=== PATIENT | male | born 1940 | race Caucasian/White ===

== ENCOUNTER 2020-12-20 15:51 | Inpatient (IN) ==
[2020-12-20] MEDS ORDERED: IOPAMIDOL 100 ML BOTTLE IV ONE (15:52)
--- NOTE | 2020-12-20 16:31 | Emergency Department Note ---
HPI General Chief complaint: Neuro Symptoms/Deficit Stated complaint: Expressive aphasia Time Seen by Provider: 12/20/20 16:09 Source: patient and family Mode of arrival: ambulatory Limitations: no limitations History of Present Illness HPI Narrative: Narrative: Patient is a 80-year-old male with history of aortic valve replacement, CAD who presented with chief complaint of expressive aphasia. Patient comes in with his , who relates most of the information because he has difficulty speaking. It sounds like over the course of the last several days the patient has had intermittent episodes of difficulties finding words. His states that it was not significantly noticeable to her, but the patient had reported to her. This morning the patient was scheduled for surgery to remove the testicle here at this hospital, and apparently had some feelings of tingling in his head. After the surgery, the patient was woken up and had a difficult time communicating. Initially it sounds like it was attributed to the anesthesia, and since he had no other focal neurologic deficits the patient went home with his . He has had persistent difficulties talking, unable to find words or sometimes substituting other words that are close to what he is trying to say. He appears very frustrated with this, but otherwise they deny any other significant symptoms such as fever, headache currently, neck pain, numbness or tingling, weakness on one side of the body, slurred speech, facial droop, chest pain, shortness of breath, nausea, vomiting, abdominal pain, changes in bowel movements or urinary symptoms. Patient was transitioned off of his normal Coumadin and placed on Lovenox in preparation for the surgery. He did not miss any doses that they are aware of, but the does note that just prior to them transitioning off the Coumadin his INR check was at 1.8. His last dose of anticoagulation was yesterday morning. Related Data Home Medications Medication Instructions Recorded Confirmed isosorbide mononitrate 60 mg 60 mg PO QDAY 11/21/20 12/20/20 tablet,extended release 24 hr metformin 500 mg tablet See Rx Instructions PO .COMPLEX 11/21/20 12/20/20 nitroglycerin 0.4 mg sublingual 0.4 mg SUBLINGUAL Q5-15M PRN 11/21/20 12/20/20 tablet omega-3 fatty acids-fish oil 340 1 cap PO BID 11/21/20 12/20/20 mg-1,000 mg capsule rosuvastatin 20 mg tablet 20 mg PO QPM tab 11/21/20 12/20/20 sacubitril 97 mg-valsartan 103 mg 1 tab PO BID 11/21/20 12/20/20 tablet Lactobacillus acidophilus 1,000 mmu cells PO QDAY 12/17/20 12/20/20 gabapentin 300 mg PO QHS 12/17/20 12/20/20 lysine 1,000 mg PO BID 12/17/20 12/20/20 metoprolol succinate 50 mg PO BID 12/17/20 12/20/20 multivitamin 1 tab PO QDAY 12/17/20 12/20/20 Previous Rx's Medication Instructions Recorded hydrocodone-acetaminophen 1 tab PO Q6H PRN #8 tab 12/20/20 Allergies Allergy/AdvReac Type Severity Reaction Status Date / Time [id number] Reductase Allergy Intermediate Muscle Verified 12/20/20 15:51 Inhibitor Aches/Dizziness Review of Systems ROS ROS Narrative: Narrative: All systems ED: reviewed and negative except as stated. 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) Left ventricular hypertrophy (Chronic) Pure hypercholesterolemia, unspecified (Chronic) Coronary artery disease (Chronic) Atypical atrial flutter (Chronic) Primary generalized hypertrophic osteoarthrosis (Chronic) Multiple thyroid nodules (Chronic) Lumbar radiculopathy (Chronic) 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) History of tobacco use (Chronic) Mass of left testis (Acute) Stroke-like symptoms (Acute) Medical History Anxiety 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) with other forms of angina pectoris Atypical atrial flutter Benign hypertensive heart disease without heart failure Coronary artery disease Elevated PSA History of tobacco use Inflammation of scrotum Junctional nevus Left epididymitis Left ventricular hypertrophy 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 Low back pain Lumbar radiculopathy Multiple thyroid nodules Primary generalized hypertrophic osteoarthrosis Pure hypercholesterolemia, unspecified Swollen testicle Type 2 diabetes mellitus with diabetic polyneuropathy Umbilical hernia Surgical History History of artificial heart valve (~2006) History of bilateral cataract extraction (06/2015) History of coronary artery bypass graft 2006 quintuple bypass History of heart artery stent 2016 replaced stents; stent placement 02/10/19 History of neck surgery 2009 fusion, cage History of tonsillectomy History of total bilateral knee replacement (TKR) S/P vasectomy Family History Mother Blood clot in vein Father Prostate cancer Brother Diabetes Hypertension Other Cancer Social History Smoking Status: Former smoker Alcohol Intake Frequency: does not drink Substance Use: does not use Exam Narrative Narrative: Narrative: Patient ambulated into the emergency department under his own power without any difficulties. He is sitting up in the bed now, and otherwise does not appear to be in acute discomfort or distress. He does appear to be frustrated with the fact that he is having a difficult time communicating, but appears to understand everything else that we are talking and discussing. General Limitations: no limitations Head Head: Present atraumatic and normocephalic Eye Eye: Present normal appearance, PERRL and EOMI; Absent scleral icterus and conjunctival injection ENT ENT: Present normal oropharynx and mucous membranes moist Neck Neck: Present full ROM and trachea midline; Absent tenderness and lymphadeno martha Chest Chest: Present symmetric chest wall rise Respiratory Respiratory: Present normal lung sounds bilaterally; Absent respiratory distress, rales/crackles, wheezes, stridor and accessory muscle use Cardiovascular Cardiovascular: Present regular rate and normal rhythm; Absent systolic murmur and diastolic murmur Adbominal Abdominal: Present soft; Absent tenderness, guarding, rebound, rigidity and mass Extremities Extremities: Absent pedal edema, pretibial edema and calf tenderness Back Back: Absent CVA tenderness (R), CVA tenderness (L) and spinous process tenderness Neurological Neurological: Present alert, oriented X3 and normal gait; Absent motor sensory deficit Expanded Neurological Patient oriented to: Present person, place and time Speech: Present expressive aphasia and other (NIHSS of 2. ); Absent receptive aphasia and slurred CRANIAL NERVES: EOM function (II, III, IV, ): Normal, facial sensation (V): Normal, facial palsy (VII): Normal, gag reflex (IX): Normal, spinal accessory function (XI): Normal and tongue deviation (XII): Normal CEREBELLAR FUNCTION: finger to nose: Normal and heel to paula: Normal CEREBELLAR FUNCTION: normal gait Motor strength - LUE: 5/5 Motor strength - RUE: 5/5 Motor strength - LLE: 5/5 Motor strength - RLE: 5/5 UPPER MOTOR NEURON EXAM: anaya neglect: Normal and pronator drift: Normal SENSORY EXAM UPPER EXTREMITY: Normal: light touch SENSORY EXAM LOWER EXTREMITY: Normal: light touch Psychiatric Psychiatric: Present normal affect and normal mood Skin Skin: Present warm (WNL) and dry Course Vital Signs Vital signs: Vital Signs Temperature 98.6 F 12/20/20 15:51 Pulse Rate 64 12/20/20 15:51 Respiratory Rate 16 12/20/20 15:51 Blood Pressure 150/68 12/20/20 15:51 Pulse Oximetry (%) 98 12/20/20 15:51 Temperature 98.6 F 12/20/20 19:49 Pulse Rate 62 12/20/20 19:49 Respiratory Rate 16 12/20/20 18:16 Blood Pressure 141/76 12/20/20 19:49 Pulse Oximetry (%) 99 12/20/20 19:49 [facility] MDM Narrative Medical decision making narrative: Narrative: Patient is a 80-year-old male presented with chief complaint of expressive aphasia. At this time patient is a history and physical exam consistent with likely a stroke, however his NIH SS was only a 2. His symptoms were also improving, and given the uncertain circumstances of to when his symptoms actually started and delayed presentation he is not a candidate for TPA. Work- up was performed including CT and CTA of the head and neck. No evidence of intracranial bleeding, and he had some mild diffuse stenosis noted on CTA. Rest of his blood work is overall unremarkable, and my suspicion is that this is related to the fact that he has a prosthetic valve and there anticoagulation efforts may have not been sufficient during the tapering him off of Coumadin and restarting him on Coumadin. Because of the patient's anticoagulation complexity, I did discuss case with neurology at [place], and discussed with Dr. Higuera. She stated that there was no intervention needed at this time given the timing of presentation, the anticoagulation, and no significant stenosis or embolism noted. Due to the patient's artificial valve, she recommended admission to the hospital for inpatient work-up to help facilitate an appropriate following, including MRI, echo, and blood work. I discussed this with the hospitalist, who agrees the plan admission at this time. I also discussed the findings, results, and discussions that I had multiple times with the patient and at bedside. While it was very difficult to coordinate due to the fact [place], we were able to have specialist consultation to discuss appropriate care, and that the specialist were comfortable with the patient staying here for work-up. Both the patient and agree to the plan at this time and have no further concerns or questions. Lab Data Result diagrams: 12/20/20 17:00 12/20/20 17:00 Labs: Lab Results 12/20/20 12/20/20 Range/Units 17:00 17:00 WBC 9.7 (4.5-11.0) K/mcL RBC 3.56 L (4.63-6.08) M/mcL Hgb 11.3 L (13.7-17.5) g/dL Hct 35.1 L (40.1-51.0) % MCV 98.6 (80.0-100.0) fL MCH 31.7 (26.0-34.0) pg MCHC 32.2 (31.0-36.0) g/dL RDW 13.6 (11.5-14.5) % Plt Count 121 L (140-440) K/mcL MPV 13.4 H (7.4-10.4) fL Neut % (Auto) 94.9 H (38.0-78.0) % Lymph % (Auto) 2.2 L (15.5-49.0) % Osborne % (Auto) 2.6 (1.0-12.0) % Eos % (Auto) 0.1 (0.0-7.0) % Baso % (Auto) 0.2 (0.0-2.0) % Lymph # (Auto) 0.21 L (1.50-4.80) K/mcL Osborne # (Auto) 0.25 (0.10-0.90) K/mcL Eos # (Auto) 0.01 (0.00-0.70) K/mcL Baso # (Auto) 0.02 (0.00-0.30) K/mcL Absolute Neutrophils 9.20 H (1.80-8.00) K/mcL Sodium 133 (133-145) mmol/L Potassium 4.8 (3.3-5.1) mmol/L Chloride 102 (96-108) mmol/L Carbon Dioxide 21 L (22-30) mmol/L Anion Gap 10.0 (8.0-16.0) BUN 16 (8-23) mg/dL Creatinine 1.0 (0.7-1.2) mg/dL POC Creatinine 1.0 (0.6-1.2) mg/dL GFR Calculation 71 Glucose 249 H (70-105) mg/dL Calcium 8.9 (8.6-10.4) mg/dL Total Bilirubin 0.6 (0.1-1.0) mg/dL AST 23 (<40) U/L ALT 25 (<40) U/L Alkaline Phosphatase 85 (39-117) U/L Total Protein 6.2 (5.9-8.4) gm/dL Albumin 4.2 (3.2-5.2) gm/dL Globulin 2.0 L (2.2-3.7) gm/dL Albumin/Globulin Ratio 2.1 (1.0-2.3) Procedures Other Procedure: EKG shows normal sinus rhythm with a rate of approximately 60. No ST elevation or depression concerning for ischemia. No other significant arrhythmia noted. 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 by RETAIL TRAINING MANAGER/PA only: No Clinical Impression: Stroke-like symptoms Patient Disposition: Xfer As Inpt ([facility]) Follow up with: Janes Elias DO [Primary Care Provider] - Prescriptions: No Action metformin 500 mg tablet See Rx Instructions PO .COMPLEX RF: 0 rosuvastatin 20 mg tablet 20 mg PO QPM RF: 0 isosorbide mononitrate 60 mg tablet extended release 24 hr 60 mg PO QDAY RF: 0 Entresto 97-103 mg tablet 1 tab PO BID RF: 0 Fish Oil 340-1,000 mg capsule 1 cap PO BID RF: 0 nitroglycerin 0.4 mg tablet, sublingual 0.4 mg sublingual Q5-15M PRN (Reason: Angina) RF: 0 multivitamin Tablet 1 tab PO QDAY RF: 0 Lactobacillus acidophilus Tablet 1,000 mmu cells PO QDAY RF: 0 gabapentin 300 mg Capsule 300 mg PO QHS RF: 0 metoprolol succinate 50 mg Capsule,Sprinkle,Er 24hr 50 mg PO BID RF: 0 lysine 1,000 mg Tablet 1,000 mg PO BID RF: 0 hydrocodone-acetaminophen 5-325 mg tablet 1 tab PO Q6H PRN (Reason: pain) Qty: 8 RF: 0 Stand Alone Forms: Left Against Medical Advice
--- NOTE | 2020-12-20 16:33 | Cat Scan Report ---
CLINICAL INFORMATION: Stroke COMPARISON: None. TECHNIQUE: 2.5 mm helical slices were obtained in the skull base to vertex. Following reconstruction, axial reformatted images were reviewed at bone and parenchymal windows. The exam was performed using radiation dose optimization techniques including, but not limited to, automated exposure control, adjustment of the mA and/or kV according to patient size and use of iterative reconstruction technique. FINDINGS: The ventricles, sulci, and fissures are symmetrically enlarged compatible with mild age-related atrophy. Congenital enlargement of the cisterna magna noted. Other cisterns are normal No extra-axial fluid collections are identified. Mild patchy chronic ischemic changes, in the deep cerebral white matter, are expected for age. 1 cm remote lacunar infarct noted in the deep left frontal white matter. There is no hemorrhage, mass effect, or edema. Bone windows show no osseous abnormality. IMPRESSION: Mild atrophy and chronic ischemic changes in the deep cerebral white matter-expected for age. 1 cm remote lacunar infarct in the deep left frontal white matter. No acute findings Interpreted and Authenticated by: Mauricio Pak 12/20/20
--- NOTE | 2020-12-20 17:11 | Cat Scan Report ---
CLINICAL INFORMATION: COMPARISON: None. TECHNIQUE: 80 cc of Isovue-370 were injected intravenously , and using SmartPrep to maximize cerebral arterial opacification, 0.625 mm helical slices were obtained from the skull base through the cerebral vertex. Following reconstruction , sagittal, coronal and axial reformatted images were processed and reviewed at multiple windows and levels. 3D volume rendered and MIP images were acquired at a independent workstation. The exam was performed using radiation dose optimization techniques including, but not limited to, automated exposure control, adjustment of the mA and/or kV according to patient size and use of iterative reconstruction technique. FINDINGS: The intracranial internal carotid, vertebral, basilar, anterior, middle and posterior cerebral arteries and their branches are well-opacified and normal in contour and caliber without significant stenosis, fusion. Scattered fibrofatty and calcific plaque seen throughout all the intracerebral arteries Superficial/deep cerebral veins and deep venous sinuses are widely patent IMPRESSION: No evidence of occlusion or significant stenosis. Scattered atherosclerotic plaque in all and cerebral arteries. Interpreted and Authenticated by: Mauricio Pak 12/20/20
--- NOTE | 2020-12-20 17:22 | Cat Scan Report ---
CLINICAL INFORMATION: Dysarthria question CVA COMPARISON: None. TECHNIQUE: 80 cc of Isovue-300 were injected intravenously followed by 40 cc of normal saline flush. Using SmartPrep, 0.625 helical slices were obtained from the thoracic aortic arch through the [place]. Following reconstruction, 2.5 mm sagittal, coronal and axial reformatted images were processed. MIPS , 3-D volume rendering and CPR images were also constructed. The exam was performed using radiation dose optimization techniques including, but not limited to, automated exposure control, adjustment of the mA and/or kV according to patient size and use of iterative reconstruction technique. FINDINGS: The thoracic aortic arch is normal diameter with moderate fibrofatty and calcific plaque. Conventional aortic branching noted. The brachiocephalic, both subclavian and left vertebral arteries are widely patent. There is a 50% stenosis of the right vertebral artery origin due to fibrofatty calcific plaque. Both common carotid arteries are widely patent. There two tandem stenoses in the proximal right ICA-both approximately 50%. This is due to fibrofatty calcific plaque. 50% stenosis is seen in the mid left cervical ICA due to fibrofatty calcific plaque. Both external carotid arteries contain plaque but no stenoses. The lung apices show mild centrilobular emphysema. There is a 5 cm lipoma in the posterior right cervical musculature-almost certainly clinically insignificant. Anterior C4-5 and C5-6 fusion appears solid. At C3-4, moderate broad disc spur complex left-sided asymmetry results in moderate central canal, severe left and moderate right IV foraminal narrowing. There is impingement of the exiting C4 nerve roots. The C4-5 fused level there is moderate IV foraminal and mild central canal narrowing possible impingement of the exiting right C5 nerve root. At the C5-6 fused level moderate marginal spurring results in moderate central canal and bilateral IV foraminal narrowing. There is probable impingement exiting C6 nerve roots.C6-7 moderate broad disc protrusion results in severe central canal left and mild right IV foraminal narrowing. IMPRESSION: 1. Two tandem stenoses in the proximal right internal carotid artery-both approximately 50%. 2. 50% stenoses in the mid left cervical internal carotid artery. 3. 50% stenosis of the right vertebral artery origin 4. Multilevel cervical spine degeneration resulting in central canal, lateral recess and IV foraminal narrowing. There is impingement of the exiting nerve roots. Please correlate with chronic or intermittent upper extremity radiculopathy. Anterior C4-5 and C5-6 fusion 5. Centrilobular emphysema 6. 5 cm lipoma in the posterior right cervical musculature Interpreted and Authenticated by: Mauricio Pak 12/20/20
--- NOTE | 2020-12-20 17:22 | XRay Report ---
CLINICAL INFORMATION: stroke symptoms COMPARISON: 12/17/2020 FINDINGS: Mild cardiomegaly is unchanged. Implantable cardioverter maintain stable position without complication. Sternotomy changes noted. Mediastinum and pulmonary vessels are normal. Lungs are clear. No effusions. IMPRESSION: Mild stable cardiomegaly Interpreted and Authenticated by: Mauricio Pak 12/20/20
[2020-12-20 17:47] LABS: Basophils # (Auto) 0.02 K/mcL (0.00-0.30); Basophils % (Auto) 0.2 % (0.0-2.0); Eosinophils # (Auto) 0.01 K/mcL (0.00-0.70); Eosinophils % (Auto) 0.1 % (0.0-7.0); Hematocrit 35.1 % (40.1-51.0); Hemoglobin 11.3 g/dL (13.7-17.5); Lymphocytes # (Auto) 0.21 K/mcL (1.50-4.80); Lymphocytes % (Auto) 2.2 % (15.5-49.0); Mean Cell Volume 98.6 fL (80.0-100.0); Mean Corpuscular HGB Conc 32.2 g/dL (31.0-36.0); Mean Platelet Volume 13.4 fL (7.4-10.4); Monocytes # (Auto) 0.25 K/mcL (0.10-0.90); Monocytes % (Auto) 2.6 % (1.0-12.0); Neutrophils % (Auto) 94.9 % (38.0-78.0); Platelet Count 121 K/mcL (140-440); RBC 3.56 M/mcL (4.63-6.08); Red Cell Distribution Width 13.6 % (11.5-14.5); WBC 9.7 K/mcL (4.5-11.0)
[2020-12-20 18:10] LABS: ALT/SGPT 25 U/L (<40); AST/SGOT 23 U/L (<40); Albumin 4.2 gm/dL (3.2-5.2); Albumin/Globulin Ratio 2.1 (1.0-2.3); Alkaline Phosphatase 85 U/L (39-117); Bilirubin,Total 0.6 mg/dL (0.1-1.0); Blood Urea Nitrogen 16 mg/dL (8-23); Calcium 8.9 mg/dL (8.6-10.4); Carbon Dioxide 21 mmol/L (22-30); Chloride 102 mmol/L (96-108); Glomerular Filtration Rate 71; Glucose 249 mg/dL (70-105)
[2020-12-20] MEDS ORDERED: ONDANSETRON 4 MG/2 ML VIAL IV PRN ×2 (20:05→21:12)
--- NOTE | 2020-12-20 20:30 | Internal Med History&Physical ---
HPI History of Present Illness Patient information: Note initiated : 12/20/20 at 8:20 pm Service Date, if different from initiated Date: [] Patient: Tommie Gusman a 80 y/o M admitted on for Expressive aphasia. Chief Complaint: [] History of present illness: Mr. Gusman is a 80 year old M Patient has had brief intermittent episodes of the past couple days where he had difficulty finding words.. He had a left orchiectomy today and afterwards had a difficult time expressing himself. CTA head neck was done which showed 50% stenosis mid extracranial arteries no thrombosis noted. Case was discussed with [place] neurologist who said no urgent need for any intervention but to obtain echo and MRI. Lovenox warfarin bridging. Patient on warfarin for artificial valve sounds like he may have a history of flutter and has a pacemaker and AICD. Patient symptoms slowly improving in the ED. Denies any recent illnesses. No vision changes. No extremity numbness or weakness. Review of Systems: Pertinent positives as above. Denies headache/fev er/chills/nausea/vomiting/chest or abdominal pain/cough/dyspnea/diarrhea. 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) Left ventricular hypertrophy (Chronic) Pure hypercholesterolemia, unspecified (Chronic) Coronary artery disease (Chronic) Atypical atrial flutter (Chronic) Primary generalized hypertrophic osteoarthrosis (Chronic) Multiple thyroid nodules (Chronic) Lumbar radiculopathy (Chronic) 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) History of tobacco use (Chronic) Mass of left testis (Acute) Stroke-like symptoms (Acute) Medical History Anxiety 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) with other forms of angina pectoris Atypical atrial flutter Benign hypertensive heart disease without heart failure Coronary artery disease Elevated PSA History of tobacco use Inflammation of scrotum Junctional nevus Left epididymitis Left ventricular hypertrophy 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 Low back pain Lumbar radiculopathy Multiple thyroid nodules Primary generalized hypertrophic osteoarthrosis Pure hypercholesterolemia, unspecified Swollen testicle Type 2 diabetes mellitus with diabetic polyneuropathy Umbilical hernia Surgical History History of artificial heart valve (~2006) History of bilateral cataract extraction (06/2015) History of coronary artery bypass graft 2006 quintuple bypass History of heart artery stent 2016 replaced stents; stent placement 02/10/19 History of neck surgery 2009 fusion, cage History of tonsillectomy History of total bilateral knee replacement (TKR) S/P vasectomy Family History Mother Blood clot in vein Father Prostate cancer Brother Diabetes Hypertension Other Cancer Social History marital status: occupational status: employed smoking status: Former smoker alcohol intake frequency: does not drink substance use type: does not use MEDS/ALLERGIES Home Medications and Allergies Home Medications Medication Instructions Recorded Confirmed Type isosorbide mononitrate 60 mg 60 mg PO QDAY 11/21/20 12/20/20 History tablet,extended release 24 hr metformin 500 mg tablet See Rx Instructions PO .COMPLEX 11/21/20 12/20/20 History nitroglycerin 0.4 mg sublingual 0.4 mg SUBLINGUAL Q5-15M PRN 11/21/20 12/20/20 History tablet omega-3 fatty acids-fish oil 340 1 cap PO BID 11/21/20 12/20/20 History mg-1,000 mg capsule rosuvastatin 20 mg tablet 20 mg PO QPM tab 11/21/20 12/20/20 History sacubitril 97 mg-valsartan 103 mg 1 tab PO BID 11/21/20 12/20/20 History tablet Lactobacillus acidophilus 1,000 mmu cells PO QDAY 12/17/20 12/20/20 History gabapentin 300 mg PO QHS 12/17/20 12/20/20 History lysine 1,000 mg PO BID 12/17/20 12/20/20 History metoprolol succinate 50 mg PO BID 12/17/20 12/20/20 History multivitamin 1 tab PO QDAY 12/17/20 12/20/20 History hydrocodone-acetaminophen 1 tab PO Q6H PRN #8 tab 12/20/20 12/20/20 Rx Allergies Allergy/AdvReac Type Severity Reaction Status Date / Time Lyklbpe-Kzy-Cij Reductase Allergy Intermediate Muscle Verified 12/20/20 15:51 Inhibitor Aches/Dizziness EXAM Constitutional Vitals: Temp Pulse Resp BP Pulse Ox 98.6 F 62 16 141/76 99 12/20/20 19:49 12/20/20 19:49 12/20/20 18:16 12/20/20 19:49 12/20/20 19:49 Exam: General: Alert, Awake, No acute Distress Eyes/N/T: EOMI, PERRL, dmm Head/Neck: neck supple, normocephalic atraumatic CV: RRR, 3/6 SM, normal s1/s2 Pulm: Clear b/l, no wheezing/rhonchi/rales Abd: soft, nontender, +BS x4 Ext: no clubbing/cyanosis/edema Neuro: Alert, expressive aphasia, no pronator drift and face symmetrical symmetrical strength b/l upper/lower, sensations intact b/l upper/lower Skin: warm/dry DATA Data Completed and Pending Labs: Labs from last 24 hours 12/20/20 12/20/20 17:00 17:00 WBC 9.7 RBC 3.56 L Hgb 11.3 L Hct 35.1 L MCV 98.6 MCH 31.7 MCHC 32.2 RDW 13.6 Plt Count 121 L MPV 13.4 H Neut % (Auto) 94.9 H Lymph % (Auto) 2.2 L Towner % (Auto) 2.6 Eos % (Auto) 0.1 Baso % (Auto) 0.2 Lymph # (Auto) 0.21 L Towner # (Auto) 0.25 Eos # (Auto) 0.01 Baso # (Auto) 0.02 Absolute Neutrophils 9.20 H Sodium 133 Potassium 4.8 Chloride 102 Carbon Dioxide 21 L Anion Gap 10.0 BUN 16 Creatinine 1.0 POC Creatinine 1.0 GFR Calculation 71 Glucose 249 H Calcium 8.9 Total Bilirubin 0.6 AST 23 ALT 25 Alkaline Phosphatase 85 Total Protein 6.2 Albumin 4.2 Globulin 2.0 L Albumin/Globulin Ratio 2.1 A/P Narrative A/P Narrative: A: *Strokelike symptoms (expressive aphasia): -Case discussed with stroke neurologist, no immediate need for intervention of extracranial stenosis *CAD w/cabg and stent: *h/o CHF w/AICD: *Aortic Valve Replacement 2006: on warfarin -INR subtherapeutic *h/o Aflutter w/PPM: *HTN: *DM w/ neuropathy: a1c *Anemia, chronic: *Atelectasis: P: -Permissive hypertension first 24-48 hr -Lovenox-warfarin bridge -neurochecks -echo and MRI pending -cont statin -restart BP meds gradually -SSI -IS -f/u with Dr. Cain regarding extracranial stenosis -PT/OT/ST -ppx: Warfarin per pharmacy Full code Time Spent With Patient Time: Total time spent is greater than 50% in coordination of care (as documented) at patient's floor/unit and/or counseling patient:
[2020-12-20] MEDS ORDERED: LABETALOL 5 MG/ML ML IV PRN (21:12)
[2020-12-20] MEDS ORDERED: MAGNESIUM SULFATE 2 GM/50 ML BAG IV PRN (21:12)
[2020-12-20] MEDS ORDERED: POLYETHYLENE GLYCOL 3350 17 GM PACKET PO PRN (21:12)
[2020-12-20] MEDS ORDERED: 0.9 % SODIUM CHLORIDE 1,000 ML IV SCH (21:12)
[2020-12-20] MEDS ORDERED: METOCLOPRAMIDE 10 MG/2 ML VIAL IV PRN (21:12)
[2020-12-20] MEDS ORDERED: DEXTROSE 50% 50 ML VIAL IV PRN (21:12)
[2020-12-20] MEDS ORDERED: POTASSIUM CHLORIDE 40 MEQ in DEXTROSE 5% IN WATER 500 ML IV PRN (21:12)
[2020-12-20] MEDS ORDERED: METOPROLOL TARTRATE 5 MG/5 ML VIAL IV PRN (21:12)
[2020-12-20] MEDS ORDERED: IPRATROPIUM/ALBUTEROL 3 ML AMPUL.NEB NEB PRN (21:12)
[2020-12-20] MEDS ORDERED: SENNOSIDES 1 TABLET PO PRN (21:12)
[2020-12-20] MEDS ORDERED: ACETAMINOPHEN 325 MG TABLET PO PRN (21:12)
[2020-12-20] MEDS ORDERED: DEXTROSE 31 GM ORAL.SUSP PO PRN (21:12)
[2020-12-20] MEDS ORDERED: POTASSIUM CHLORIDE 20 MEQ TABLET PO PRN ×2 (21:12)
[2020-12-20] MEDS ORDERED: 0.9 % SODIUM CHLORIDE 10 ML SYRINGE IV SCH (22:00)
[2020-12-20] MEDS ORDERED: HYDROcodone/APAP 5/325MG TABLET PO PRN (22:14)
[2020-12-20] MEDS ORDERED: NITROGLYCERIN 0.4 MG TAB.SUBL SL PRN (22:15)
[2020-12-20] MEDS: INSULIN LISPRO 1 UNIT/0.01 ML UNIT SQ SCH (22:56)
[2020-12-20] MEDS: ENOXAPARIN 80 MG/0.8 ML SYRINGE SQ SCH (22:56)
[2020-12-20] MEDS: GABAPENTIN 300 MG CAPSULE PO SCH (22:57)
[2020-12-20] MEDS: DOCUSATE SODIUM 100 MG CAPSULE PO SCH (22:57)
[2020-12-20] MEDS: METOPROLOL SUCCINATE 50 MG TAB.XL.24H PO SCH (22:57)
[2020-12-20] MEDS: 0.9 % SODIUM CHLORIDE 10 ML SYRINGE IV SCH (23:01)
[2020-12-20 23:15] LABS: INR 1.1 (0.9-1.1); Prothrombin Time 14.8 sec (11.9-14.5)
[2020-12-20 23:30] LABS: Hemoglobin A1C 6.1 % Hgb (4.0-6.0)
[2020-12-21] MEDS: 0.9 % SODIUM CHLORIDE 10 ML SYRINGE IV SCH ×3 (04:52→21:27)
--- NOTE | 2020-12-21 07:26 | Internal Med Progress Note ---
SUBJECTIVE Subjective Patient information: Note initiated : 12/21/20 at 7:24 am Service Date, if different from initiated Date: [] Patient: Tommie Gusman a 80 y/o M admitted on 12/20/20 for Expressive aphasia. Chief Complaint: [] Interval history: History of present illness: Mr. Gusman is a 80 year old M Patient has had brief intermittent episodes of the past couple days where he had difficulty finding words.. He had a left orchiectomy today and afterwards had a difficult time expressing himself. CTA head neck was done which showed 50% stenosis mid extracranial arteries no thrombosis noted. Case was discussed with [place] neurologist who said no urgent need for any intervention but to obtain echo and MRI. Lovenox warfarin bridging. Patient on warfarin for artificial valve sounds like he may have a history of flutter and has a pacemaker and AICD. Patient symptoms slowly improving in the ED. Denies any recent illnesses. No vision changes. No extremity numbness or weakness. 12/21 Expressive aphasia present but mildly improved. No overnight event or new complaints. Unable obtain MRI given pacer. Will obtain CT brain tomorrow morning. Awaiting echo results as well. Also on Lovenox warfarin bridge awaiting INR to start elevating. Review of Systems: denies headache/fever/chills/nausea/vomiting/chest or abdominal pain/ cough/dyspnea/diarrhea. Otherwise see above. Constitutional Vitals: Vital Signs Temp Pulse Resp BP Pulse Ox 98 F 61 16 114/58 98 12/21/20 04:00 12/21/20 06:01 12/21/20 06:01 12/21/20 06:01 12/21/20 06:01 Period Temp Pulse Resp BP Sys/Herrera Pulse Ox Last 24 Hr 98 F-98.6 F 56-67 9-27 114-152/48-99 89-100 Intake and Output 12/20/20 12/21/20 12/21/20 21:59 05:59 13:59 Intake Total 400 Balance 400 Weight 78.471 kg Intake & Output: Intake & Output 12/20/20 12/21/20 12/21/20 21:59 05:59 13:59 Intake Total 400 Balance 400 Weight 78.471 kg Intake: Oral 400 Other: # Voids 1 Exam: Alert, Awake, No acute Distress Eyes/N/T: EOMI, Head/Neck: neck supple, CV: RRR, 3/6 SM, Pulm: Clear b/l, no wheezing/rhonchi/rales Abd: soft, nontender, +BS x4 Ext: no clubbing/cyanosis, 1+ b/l LE edema Neuro: Alert, expressive aphasia, symmetrical strength b/l upper/lower, Skin: warm/dry OBJ DATA Labs CBC & Chem 7: 12/20/20 17:00 12/20/20 17:00 Labs: Abnormal Lab Results 12/20/20 12/20/20 12/20/20 22:03 17:00 17:00 RBC Hgb Hct Plt Count MPV Neut % (Auto) Lymph % (Auto) Lymph # (Auto) Absolute Neutrophils PT 14.8 H Carbon Dioxide 21 L Glucose 249 H Hemoglobin A1c 6.1 H Globulin 2.0 L 12/20/20 17:00 RBC 3.56 L Hgb 11.3 L Hct 35.1 L Plt Count 121 L MPV 13.4 H Neut % (Auto) 94.9 H Lymph % (Auto) 2.2 L Lymph # (Auto) 0.21 L Absolute Neutrophils 9.20 H PT Carbon Dioxide Glucose Hemoglobin A1c Globulin Meds: Medications Acetaminophen (Acetaminophen 325 Mg Tablet) 650 mg PO Q6HP PRN PRN Reason: PAIN/FEVER > 101 Hydrocodone Bitart/Acetaminophen (Hydrocodone/Apap 5/325mg Tablet) 1 tab PO Q6HP PRN PRN Reason: Pain Albuterol/Ipratropium (Ipratropium/Albuterol 3 Ml Ampul.Neb) 3 ml NEB Q4HP PRN PRN Reason: Shortness Of Breath Dextrose (Dextrose 50% 50 Ml Vial) 0 ml IV UD PRN PRN Reason: Hypoglycemia Diagnostic Test (Pha) (Accu-Chek 1 Each Strip) 1 each FS ACHS [facility] Last Admin: 12/20/20 22:26 Dose: 1 each Documented by: Docusate Sodium (Docusate Sodium 100 Mg Capsule) 100 mg PO BID [facility] Last Admin: 12/20/20 22:57 Dose: 100 mg Documented by: Enoxaparin Sodium (Enoxaparin 80 Mg/0.8 Ml Syringe) 80 mg SQ BID [facility] Last Admin: 12/20/20 22:56 Dose: 80 mg Documented by: Gabapentin (Gabapentin 300 Mg Capsule) 300 mg PO QHS [facility] Last Admin: 12/20/20 22:57 Dose: 300 mg Documented by: Glucose (Dextrose 31 Gm Oral.Susp) 15 gm PO PRN PRN PRN Reason: Hypoglycemia Potassium Chloride 40 meq/ (Dextrose) 520 mls @ 130 mls/hr IV UD PRN PRN Reason: Potassium < 3 Magnesium Sulfate (Magnesium Sulfate) 2 gm in 50 mls @ 50 mls/hr IV UD PRN PRN Reason: Magnesium </= 1.6 Insulin Human Lispro (Insulin Lispro 1 Unit/0.01 Ml Unit) 0 unit SQ ACHS [facility]; Protocol Last Admin: 12/20/20 22:56 Dose: 2 units Documented by: Isosorbide Mononitrate (Isosorbide Mononitrate 60 Mg Tab.Xl.24h) 60 mg PO QDAY [facility] Labetalol HCl (Labetalol 5 Mg/Ml Ml) 0 mg IV Q2HP PRN PRN Reason: Hypertension Lactobacillus Rhamnosus (Lactobacillus 1 Capsule) 1 cap PO DAILY [facility] Metoclopramide HCl (Metoclopramide 10 Mg/2 Ml Vial) 10 mg IV Q6HP PRN PRN Reason: Nausea And Vomiting Metoprolol Succinate (Metoprolol Succinate 50 Mg Tab.Xl.24h) 50 mg PO BID [facility] Last Admin: 12/20/20 22:57 Dose: 50 mg Documented by: Metoprolol Tartrate (Metoprolol Tartrate 5 Mg/5 Ml Vial) 5 mg IV Q2HP PRN PRN Reason: Tachyarrhythmias HR>110 Nitroglycerin (Nitroglycerin 0.4 Mg Tab.Subl) 0.4 mg SL Q5M PRN PRN Reason: Chest Pain Ondansetron HCl (Ondansetron 4 Mg/2 Ml Vial) 4 mg IV Q4HP PRN PRN Reason: Nausea And Vomiting Pantoprazole Sodium (Pantoprazole 40 Mg Vial) 40 mg IV QAMAC [facility] Rosuvastatin 20 Mg (Tablet) 1 dose PO QPM [facility] Sacubitril-Valsartan [Entresto] 97-103 Mg Tablet 1 dose PO BID [facility] Polyethylene Glycol (Polyethylene Glycol 3350 17 Gm Packet) 17 gm PO DAILYP PRN PRN Reason: Constipation Potassium Chloride (Potassium Chloride 20 Meq Tablet) 40 meq PO UD PRN PRN Reason: Potssium is 3-3.5 Potassium Chloride (Potassium Chloride 20 Meq Tablet) 40 meq PO UD PRN PRN Reason: Potassium < 3 Senna (Sennosides 1 Tablet) 2 tab PO DAILYP PRN PRN Reason: Constipation Sodium Chloride (0.9 % Sodium Chloride 10 Ml Syringe) 10 ml IV Q8 [facility] Last Admin: 12/21/20 04:52 Dose: Not Given Documented by: Warfarin Sodium (Warfarin Per Pharmacy) 1 order PO UD DAVID A/P Narrative A/P Narrative: A: *Strokelike symptoms (expressive aphasia): -Case discussed with stroke neurologist, no immediate need for intervention of extracranial stenosis *CAD w/cabg & stent: *h/o CHF w/AICD: *Aortic Valve Replacement 2006: on warfarin -INR subtherapeutic on admit *h/o Aflutter w/PPM: *HTN: *DM w/ neuropathy: a1c 6.1 *Anemia, chronic: *Atelectasis: P: -Permissive hypertension first 24-48 hr -Lovenox-warfarin bridge goal inr 2.5-3.5 -neurochecks -echo pending -unable to get MRI d/t PPM, will obtain CT brain in morning -cont statin -restart BP meds gradually -SSI -IS -f/u with Dr. Cani regarding extracranial stenosis -PT/OT/ST -ppx: Warfarin per pharmacy Full code Time Spent With Patient Time: Total time spent is greater than 50% in coordination of care (as documented) at patient's floor/unit and/or counseling patient: QUALITY VTE Deep Vein Thrombosis/Pulmonary Embolism Present on Admission: No
[2020-12-21 07:52] LABS: INR 1.2 (0.9-1.1); Prothrombin Time 16.2 sec (11.9-14.5)
[2020-12-21] MEDS ORDERED: LABETALOL 5 MG/ML ML IV PRN (08:20)
[2020-12-21 08:29] LABS: ALT/SGPT 23 U/L (<40); AST/SGOT 26 U/L (<40); Albumin 3.8 gm/dL (3.2-5.2); Albumin/Globulin Ratio 2.5 (1.0-2.3); Alkaline Phosphatase 74 U/L (39-117); Bilirubin,Direct < 0.2 mg/dL (0-0.3); Bilirubin,Total 0.4 mg/dL (0.1-1.0); Blood Urea Nitrogen 17 mg/dL (8-23); Calcium 8.5 mg/dL (8.6-10.4); Carbon Dioxide 22 mmol/L (22-30); Chloride 107 mmol/L (96-108); Globulin 1.5 gm/dL (2.2-3.7); Glomerular Filtration Rate 71; Glucose 171 mg/dL (70-105); Lactate Dehydrogenase 310 U/L (135-225); Phosphorous 2.9 mg/dL (2.5-4.5); Triglycerides 52 mg/dL (<150); Uric Acid 4.7 mg/dL (2.5-8.0)
[2020-12-21] MEDS ORDERED: Sacubitril-Valsartan [Entresto] 97-103 mg tablet PO SCH (09:00)
[2020-12-21] MEDS: INSULIN LISPRO 1 UNIT/0.01 ML UNIT SQ SCH ×4 (09:02→21:22)
[2020-12-21] MEDS: METOPROLOL SUCCINATE 50 MG TAB.XL.24H PO SCH ×2 (09:03→21:26)
[2020-12-21] MEDS: PANTOPRAZOLE 40 MG VIAL IV SCH (09:03)
[2020-12-21] MEDS: DOCUSATE SODIUM 100 MG CAPSULE PO SCH ×2 (09:03→21:26)
[2020-12-21] MEDS: ENOXAPARIN 80 MG/0.8 ML SYRINGE SQ SCH (09:03)
[2020-12-21] MEDS: LACTOBACILLUS 1 CAPSULE PO SCH (09:03)
--- NOTE | 2020-12-21 09:26 | EKG ---
[facility] Test Date: 2020-12-20 Pat Name: Tommie Gusman Department: ED Room: Gender: Male [employer] Manager: kw : 1940 Requested By: Jerry Oneill Order Number: [id number] Reading MD: Zafar Houston Measurements Intervals [place] Rate: 60 P: OR: 183 QRS: 9 QRSD: 122 T: 100 QT: 423 QTc: 423 Interpretive Statements Atrial-paced complexes Left bundle branch block Electronically Signed On 12-21-2020 9:25:54 PDT by Zafar Houston /[id number]
--- NOTE | 2020-12-21 13:11 | Urology Consult Note ---
HPI Data of Consult Patient: known to practice within the last 3 years Consult date: 12/21/20 Requesting physician: Kartik Todd Primary Care Provider: Janes Elias DO Consult Narrative Patient Information: Note initiated : 12/21/20 at 1:03 pm Service Date, if different from initiated Date: [] Patient: Tommie Gusman a 80 y/o M admitted on 12/20/20 for Expressive aphasia. 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 There were no intraoperative complications. The patient was discharged home where his noticed an increase in his slurred speech. In speaking with her today she reports that he began to have signs of slurred speech this past Thursday. After surgery the symptoms became worse. She reports that currently they are improving somewhat. That is the only change she reports she notices. The patient reports that he does notice that he is having increased difficulty expressing himself and finding the right words. He is not having any significant pain. He is alert in bed and eating lunch Chief complaint: Expressive aphasia and ecchymosis of the surgical wound. Reason for consult: Ecchymosis at the surgical wound. 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) Left ventricular hypertrophy (Chronic) Pure hypercholesterolemia, unspecified (Chronic) Coronary artery disease (Chronic) Atypical atrial flutter (Chronic) Primary generalized hypertrophic osteoarthrosis (Chronic) Multiple thyroid nodules (Chronic) Lumbar radiculopathy (Chronic) alf current use of anticoagulant (Chronic) History of tobacco use (Chronic) Medical History Anxiety 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) with other forms of angina pectoris Atypical atrial flutter Benign hypertensive heart disease without heart failure Coronary artery disease Elevated PSA History of tobacco use Inflammation of scrotum Junctional nevus Left epididymitis 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 Low back pain Lumbar radiculopathy Multiple thyroid nodules Primary generalized hypertrophic osteoarthrosis Pure hypercholesterolemia, unspecified Swollen testicle Type 2 diabetes mellitus with diabetic polyneuropathy Umbilical hernia Surgical History History of artificial heart valve (~2006) History of bilateral cataract extraction (06/2015) History of coronary artery bypass graft 2006 quintuple bypass History of heart artery stent 2015 replaced stents; stent placement 02/10/19 History of neck surgery 2009 fusion, cage History of tonsillectomy History of total bilateral knee replacement (TKR) S/P vasectomy Family History Mother Blood clot in vein Father Prostate cancer Brother Diabetes Hypertension Other Cancer Social History marital status: occupational status: employed smoking status: Former smoker alcohol intake frequency: does not drink substance use type: does not use MEDS/ALLERGIES Home Medications and Allergies Home Medications Medication Instructions Recorded Confirmed Type isosorbide mononitrate 60 mg 60 mg PO QDAY 11/21/20 12/20/20 History tablet,extended release 24 hr metformin 500 mg tablet See Rx Instructions PO .COMPLEX 11/21/20 12/20/20 History nitroglycerin 0.4 mg sublingual 0.4 mg SUBLINGUAL Q5-15M PRN 11/21/20 12/20/20 History tablet omega-3 fatty acids-fish oil 340 1 cap PO BID 11/21/20 12/20/20 History mg-1,000 mg capsule rosuvastatin 20 mg tablet 20 mg PO QPM tab 11/21/20 12/20/20 History sacubitril 97 mg-valsartan 103 mg 1 tab PO BID 11/21/20 12/20/20 History tablet Lactobacillus acidophilus 1,000 mmu cells PO QDAY 12/17/20 12/20/20 History gabapentin 300 mg PO QHS 12/17/20 12/20/20 History lysine 1,000 mg PO BID 12/17/20 12/20/20 History metoprolol succinate 50 mg PO BID 12/17/20 12/20/20 History multivitamin 1 tab PO QDAY 12/17/20 12/20/20 History hydrocodone-acetaminophen 1 tab PO Q6H PRN #8 tab 12/20/20 12/20/20 Rx Allergies Allergy/AdvReac Type Severity Reaction Status Date / Time [id number] Reductase AdvReac Intermediate Muscle Verified 12/20/20 22:17 Inhibitor Aches/Dizziness Physical Examination Vital Signs Vital signs: Temp Pulse Resp BP Pulse Ox 98 F 62 19 142/62 100 12/21/20 12:03 12/21/20 12:03 12/21/20 12:03 12/21/20 12:03 12/21/20 12:03 General physical appearance General physical exam: well developed, well nourished and no distress ENT ENT exam: normal mucosa and no hearing loss Head Head exam IM: Present atraumatic, normal inspection and normocephalic Neck Neck exam: trachea midline Abdomen Abdomen: Present soft and non tender Genitourinary Genitourinary (Male): Present normal penis with no external lesions and other (Ecchymosis of the suprapubic, peripenile area and scrotum as well as the left inguinal region); Absent testicles present (Left testicle absent) Genitourinary: testicle absent: left Neurologic Neurologic: Present other (Expressive aphasia) Musculoskeletal Musculoskeletal: Present other (Resting comfortably in bed) Psychiatric Psychiatric: Absent speech is normal Results Labs Result diagrams: 12/20/20 17:00 12/21/20 06:12 Labs: Abnormal lab results 12/20/20 12/20/20 12/20/20 Range/Units 17:00 17:00 17:00 RBC 3.56 L (4.63-6.08) M/mcL Hgb 11.3 L (13.7-17.5) g/dL Hct 35.1 L (40.1-51.0) % Plt Count 121 L (140-440) K/mcL MPV 13.4 H (7.4-10.4) fL Neut % (Auto) 94.9 H (38.0-78.0) % Lymph % (Auto) 2.2 L (15.5-49.0) % Lymph # (Auto) 0.21 L (1.50-4.80) K/mcL Absolute Neutrophils 9.20 H (1.80-8.00) K/mcL PT (11.9-14.5) sec INR (0.9-1.1) Carbon Dioxide 21 L (22-30) mmol/L Glucose 249 H (70-105) mg/dL Hemoglobin A1c 6.1 H (4.0-6.0) % Hgb Calcium (8.6-10.4) mg/dL Lactate Dehydrogenase (135-225) U/L Total Protein (5.9-8.4) gm/dL Globulin 2.0 L (2.2-3.7) gm/dL Albumin/Globulin Ratio (1.0-2.3) 12/20/20 12/21/20 12/21/20 Range/Units 22:03 06:12 06:12 RBC (4.63-6.08) M/mcL Hgb (13.7-17.5) g/dL Hct (40.1-51.0) % Plt Count (140-440) K/mcL MPV (7.4-10.4) fL Neut % (Auto) (38.0-78.0) % Lymph % (Auto) (15.5-49.0) % Lymph # (Auto) (1.50-4.80) K/mcL Absolute Neutrophils (1.80-8.00) K/mcL PT 14.8 H 16.2 H (11.9-14.5) sec INR 1.2 H (0.9-1.1) Carbon Dioxide (22-30) mmol/L Glucose 171 H (70-105) mg/dL Hemoglobin A1c (4.0-6.0) % Hgb Calcium 8.5 L (8.6-10.4) mg/dL Lactate Dehydrogenase 310 H (135-225) U/L Total Protein 5.3 L (5.9-8.4) gm/dL Globulin 1.5 L (2.2-3.7) gm/dL Albumin/Globulin Ratio 2.5 H (1.0-2.3) Diabetes panel 12/20/20 12/20/20 12/21/20 Range/Units 17:00 17:00 06:12 Sodium 133 139 (133-145) mmol/L Potassium 4.8 4.6 (3.3-5.1) mmol/L Chloride 102 107 (96-108) mmol/L Carbon Dioxide 21 L 22 (22-30) mmol/L BUN 16 17 (8-23) mg/dL Creatinine 1.0 1.0 (0.7-1.2) mg/dL Glucose 249 H 171 H (70-105) mg/dL Hemoglobin A1c 6.1 H (4.0-6.0) % Hgb Calcium 8.9 8.5 L (8.6-10.4) mg/dL AST 23 26 (<40) U/L ALT 25 23 (<40) U/L Alkaline Phosphatase 85 74 (39-117) U/L Total Protein 6.2 5.3 L (5.9-8.4) gm/dL Albumin 4.2 3.8 (3.2-5.2) gm/dL Triglycerides 47 52 (<150) mg/dL HDL Cholesterol 47 (>40) mg/dL Calcium panel 12/20/20 12/21/20 Range/Units 17:00 06:12 Calcium 8.9 8.5 L (8.6-10.4) mg/dL Phosphorus 2.9 (2.5-4.5) mg/dL Albumin 4.2 3.8 (3.2-5.2) gm/dL Pituitary panel 12/20/20 12/21/20 Range/Units 17:00 06:12 Sodium 133 139 (133-145) mmol/L Potassium 4.8 4.6 (3.3-5.1) mmol/L Chloride 102 107 (96-108) mmol/L Carbon Dioxide 21 L 22 (22-30) mmol/L BUN 16 17 (8-23) mg/dL Creatinine 1.0 1.0 (0.7-1.2) mg/dL Glucose 249 H 171 H (70-105) mg/dL Calcium 8.9 8.5 L (8.6-10.4) mg/dL Adrenal panel 12/20/20 12/21/20 Range/Units 17:00 06:12 Sodium 133 139 (133-145) mmol/L Potassium 4.8 4.6 (3.3-5.1) mmol/L Chloride 102 107 (96-108) mmol/L Carbon Dioxide 21 L 22 (22-30) mmol/L BUN 16 17 (8-23) mg/dL Creatinine 1.0 1.0 (0.7-1.2) mg/dL Glucose 249 H 171 H (70-105) mg/dL Calcium 8.9 8.5 L (8.6-10.4) mg/dL Total Bilirubin 0.6 0.4 (0.1-1.0) mg/dL AST 23 26 (<40) U/L ALT 25 23 (<40) U/L Alkaline Phosphatase 85 74 (39-117) U/L Total Protein 6.2 5.3 L (5.9-8.4) gm/dL Albumin 4.2 3.8 (3.2-5.2) gm/dL All other labs normal. 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 Preoperatively there was a question as to whether he had some slurred speech. It was determined that this was not a new finding. Postoperatively he was discharged to home where his noticed a worsening of his slurred speech and expressive aphasia which she reports had been present to some extent since the prior Thursday he was brought to the hospital where he was admitted for PCU care for possible stroke. Additionally urology consultation was obtained since this patient went to the operating room yesterday and was having some ecchymosis and bleeding from the surgical site. The patient has a history of an artificial h eart valve and for this reason is generally on anticoagulation with Coumadin and he was on bridging with Lovenox. No anticoagulation had been held at this time. On examination the wound appeared to have ecchymosis but no significant bleeding or hematoma. We discussed that we have to evaluate the risks of various things. As there did not appear to be any significant or active I felt that a pressure dressing or a IV bag placed on the wound would be adequate and that we should continue his anticoagulation as the risk of problems with his heart valve at this point outweighs the risk of the minimal ecchymosis seen at the surgical site With regard to his expressive aphasia and possible stroke this will be further evaluated by our hospitalist service. I would like to be involved with any pr oblems or changes that occur. I will check on the patient tomorrow to ensure that he is doing well. Nursing has my number to call should there be any issues overnight. Time Spent With Patient Time: Total time spent is greater than 50% in coordination of care (as documented) at patient's floor/unit and/or counseling patient: Total time spent with greater than 50% in coordination of care (as documented) at patient's floor/unit and/or counseling patient:: 25 - 35 minutes
[2020-12-21] MEDS ORDERED: WARFARIN 5 MG TABLET PO ONE (14:00)
[2020-12-21] MEDS: GABAPENTIN 300 MG CAPSULE PO SCH (21:26)
[2020-12-22] MEDS: 0.9 % SODIUM CHLORIDE 10 ML SYRINGE IV SCH ×3 (06:05→20:15)
[2020-12-22 09:15] LABS: INR 1.1 (0.9-1.1); Prothrombin Time 15.1 sec (11.9-14.5)
[2020-12-22 09:24] LABS: Basophils # (Auto) 0.04 K/mcL (0.00-0.30); Basophils % (Auto) 0.6 % (0.0-2.0); Eosinophils # (Auto) 0.09 K/mcL (0.00-0.70); Eosinophils % (Auto) 1.3 % (0.0-7.0); Hematocrit 30.5 % (40.1-51.0); Lymphocytes % (Auto) 7.4 % (15.5-49.0); Mean Cell Volume 96.8 fL (80.0-100.0); Mean Corpuscular HGB Conc 32.8 g/dL (31.0-36.0); Mean Platelet Volume 13.6 fL (7.4-10.4); Monocytes # (Auto) 0.73 K/mcL (0.10-0.90); Monocytes % (Auto) 10.8 % (1.0-12.0); Neutrophils % (Auto) 79.9 % (38.0-78.0); Platelet Count 107 K/mcL (140-440); RBC 3.15 M/mcL (4.63-6.08); Red Cell Distribution Width 13.7 % (11.5-14.5); WBC 6.7 K/mcL (4.5-11.0)
[2020-12-22] MEDS: INSULIN LISPRO 1 UNIT/0.01 ML UNIT SQ SCH ×4 (09:51→20:14)
[2020-12-22] MEDS: LACTOBACILLUS 1 CAPSULE PO SCH (09:51)
[2020-12-22] MEDS: ISOSORBIDE MONONITRATE 60 MG TAB.XL.24H PO SCH (09:51)
[2020-12-22] MEDS: METOPROLOL SUCCINATE 50 MG TAB.XL.24H PO SCH ×2 (09:51→20:13)
[2020-12-22] MEDS: PANTOPRAZOLE 40 MG VIAL IV SCH (09:51)
[2020-12-22] MEDS: DOCUSATE SODIUM 100 MG CAPSULE PO SCH ×2 (09:51→20:13)
--- NOTE | 2020-12-22 09:51 | Internal Med Progress Note ---
SUBJECTIVE Subjective Patient information: Note initiated : 12/22/20 at 9:46 am Service Date, if different from initiated Date: [] Patient: Tommie Gusman a 80 y/o M admitted on 12/20/20 for Expressive aphasia. Chief Complaint: [Expressive aphasia] Interval history: Interval history: History of present illness: Mr. Gusman is a 80 year old M Patient has had brief intermittent episodes of the past couple days where he had difficulty finding words.. He had a left orchiectomy today and afterwards had a difficult time expressing himself. CTA head neck was done which showed 50% stenosis mid extracranial arteries no thrombosis noted. Case was discussed with [place] neurologist who said no urgent need for any intervention but to obtain echo and MRI. Lovenox warfarin bridging. Patient on warfarin for artificial valve sounds like he may have a history of flutter and has a pacemaker and AICD. Patient symptoms slowly improving in the ED. Denies any recent illnesses. No vision changes. No extremity numbness or weakness. 12/21 Expressive aphasia present but mildly improved. No overnight event or new complaints. Unable obtain MRI given pacer. Will obtain CT brain tomorrow morning. Awaiting echo results as well. Also on Lovenox warfarin bridge awaiting INR to start elevating. 12/22: Expressive aphasia present but continue to improved. No overnight event or new complaints. No headache. INR 1.1. Constitutional Vitals: Vital Signs Temp Pulse Resp BP Pulse Ox 36.8 C 56 L 17 144/62 91 12/22/20 08:01 12/22/20 08:01 12/22/20 08:01 12/22/20 08:01 12/22/20 08:01 Period Temp Pulse Resp BP Sys/Herrera Pulse Ox Last 24 Hr 36.5 C-37.3 C 56-65 16-31 108-155/50-89 91-100 Intake and Output 12/21/20 12/22/20 12/22/20 21:59 05:59 13:59 Intake Total 200 0 0 Output Total 175 350 275 Balance 25 -350 -275 Weight 79.152 kg Intake & Output: Intake & Output 12/21/20 12/22/20 12/22/20 21:59 05:59 13:59 Intake Total 200 0 0 Output Total 175 350 275 Balance 25 -350 -275 Weight 79.152 kg Intake: Oral 200 0 0 Output: Void Amount 175 350 275 # of times incontinent of urine 0 Other: Urine Appearance Clear Clear Urine Color Bright Yellow Bright Yellow Urine Odor Normal Normal Stool Size Moderate Stool Color Brown Stool Consistency Soft # Voids 1 # Bowel Movements 1 General appearance: cooperative and no acute distress Head Head exam: Present atraumatic and normocephalic Eye Eye exam: Present EOMI and PERRL ENT ENT exam: Present mucous membranes moist, normal exam and normal external ear exam Neck Neck exam: Present normal inspection; Absent lymphadenopathy, tenderness and thyromegaly Respiratory Respiratory exam: Absent accessory muscle use, respiratory distress and wheezes Cardiovascular Cardiovascular exam: Present normal rate and rhythm; Absent JVD Additional comments: Mechanical heart valve clicking sound Pacemaker in place Well-healed CABG surgical wound GI/Abdominal GI/Abdominal exam: Present normal bowel sounds and soft; Absent organomegaly and tenderness Rectal Rectal exam: Present deferred Additional comments: Ecchymosis of the scrotum and penis Pressure dressings of the left groin Extremities Exam Extremities exam: Present full ROM, normal capillary refill and normal insp ection; Absent tenderness Neurological Exam Neurological exam: Present alert, CN II-XII intact and oriented X3; Absent motor sensory deficit Additional comments: Some stuttering and word finding difficulties Psychiatric Psychiatric exam: Present normal affect and normal mood; Absent anxious and depressed Skin Skin exam: Present dry and intact OBJ DATA Labs CBC & Chem 7: 12/22/20 05:24 12/21/20 06:12 Labs: Abnormal Lab Results 12/22/20 12/22/20 12/21/20 05:25 05:24 06:12 RBC 3.15 L Hgb 10.0 L Hct 30.5 L Plt Count 107 L MPV 13.6 H Neut % (Auto) 79.9 H Lymph % (Auto) 7.4 L Lymph # (Auto) 0.50 L Absolute Neutrophils PT 15.1 H INR Carbon Dioxide Glucose 171 H Hemoglobin A1c Calcium 8.5 L Lactate Dehydrogenase 310 H Total Protein 5.3 L Globulin 1.5 L Albumin/Globulin Ratio 2.5 H 12/21/20 12/20/20 12/20/20 06:12 22:03 17:00 RBC Hgb Hct Plt Count MPV Neut % (Auto) Lymph % (Auto) Lymph # (Auto) Absolute Neutrophils PT 16.2 H 14.8 H INR 1.2 H Carbon Dioxide Glucose Hemoglobin A1c 6.1 H Calcium Lactate Dehydrogenase Total Protein Globulin Albumin/Globulin Ratio 12/20/20 12/20/20 17:00 17:00 RBC 3.56 L Hgb 11.3 L Hct 35.1 L Plt Count 121 L MPV 13.4 H Neut % (Auto) 94.9 H Lymph % (Auto) 2.2 L Lymph # (Auto) 0.21 L Absolute Neutrophils 9.20 H PT INR Carbon Dioxide 21 L Glucose 249 H Hemoglobin A1c Calcium Lactate Dehydrogenase Total Protein Globulin 2.0 L Albumin/Globulin Ratio Meds: Medications Acetaminophen (Acetaminophen 325 Mg Tablet) 650 mg PO Q6HP PRN PRN Reason: PAIN/FEVER > 101 Hydrocodone Bitart/Acetaminophen (Hydrocodone/Apap 5/325mg Tablet) 1 tab PO Q6HP PRN PRN Reason: Pain Albuterol/Ipratropium (Ipratropium/Albuterol 3 Ml Ampul.Neb) 3 ml NEB Q4HP PRN PRN Reason: Shortness Of Breath Dextrose (Dextrose 50% 50 Ml Vial) 0 ml IV UD PRN PRN Reason: Hypoglycemia Diagnostic Test (Pha) (Accu-Chek 1 Each Strip) 1 each FS [facility] Last Admin: 12/21/20 21:21 Dose: 1 each Documented by: Docusate Sodium (Docusate Sodium 100 Mg Capsule) 100 mg PO BID [facility] Last Admin: 12/21/20 21:26 Dose: 100 mg Documented by: Enoxaparin Sodium (Enoxaparin 80 Mg/0.8 Ml Syringe) 80 mg SQ BID [facility] Gabapentin (Gabapentin 300 Mg Capsule) 300 mg PO QHS [facility] Last Admin: 12/21/20 21:26 Dose: 300 mg Documented by: Glucose (Dextrose 31 Gm Oral.Susp) 15 gm PO PRN PRN PRN Reason: Hypoglycemia Potassium Chloride 40 meq/ (Dextrose) 520 mls @ 130 mls/hr IV UD PRN PRN Reason: Potassium < 3 Magnesium Sulfate (Magnesium Sulfate) 2 gm in 50 mls @ 50 mls/hr IV UD PRN PRN Reason: Magnesium </= 1.6 Insulin Human Lispro (Insulin Lispro 1 Unit/0.01 Ml Unit) 0 unit SQ [facility]; Protocol Last Admin: 12/21/20 21:22 Dose: Not Given Documented by: Isosorbide Mononitrate (Isosorbide Mononitrate 60 Mg Tab.Xl.24h) 60 mg PO QDAY [facility] Labetalol HCl (Labetalol 5 Mg/Ml Ml) 0 mg IV Q2HP PRN PRN Reason: Hypertension Lactobacillus Rhamnosus (Lactobacillus 1 Capsule) 1 cap PO DAILY [facility] Last Admin: 12/21/20 09:03 Dose: 1 cap Documented by: Metoclopramide HCl (Metoclopramide 10 Mg/2 Ml Vial) 10 mg IV Q6HP PRN PRN Reason: Nausea And Vomiting Metoprolol Succinate (Metoprolol Succinate 50 Mg Tab.Xl.24h) 50 mg PO BID [facility] Last Admin: 12/21/20 21:26 Dose: 50 mg Documented by: Metoprolol Tartrate (Metoprolol Tartrate 5 Mg/5 Ml Vial) 5 mg IV Q2HP PRN PRN Reason: Tachyarrhythmias HR>110 Nitroglycerin (Nitroglycerin 0.4 Mg Tab.Subl) 0.4 mg SL Q5M PRN PRN Reason: Chest Pain Ondansetron HCl (Ondansetron 4 Mg/2 Ml Vial) 4 mg IV Q4HP PRN PRN Reason: Nausea And Vomiting Pantoprazole Sodium (Pantoprazole 40 Mg Vial) 40 mg IV QAMAC [facility] Last Admin: 12/21/20 09:03 Dose: 40 mg Documented by: Rosuvastatin 20 Mg (Tablet) 1 dose PO QPM [facility] Last Admin: 12/21/20 21:27 Dose: Not Given Documented by: Sacubitril-Valsartan [Entresto] 97-103 Mg Tablet 1 dose PO BID [facility] Polyethylene Glycol (Polyethylene Glycol 3350 17 Gm Packet) 17 gm PO DAILYP PRN PRN Reason: Constipation Potassium Chloride (Potassium Chloride 20 Meq Tablet) 40 meq PO UD PRN PRN Reason: Potssium is 3-3.5 Potassium Chloride (Potassium Chloride 20 Meq Tablet) 40 meq PO UD PRN PRN Reason: Potassium < 3 Senna (Sennosides 1 Tablet) 2 tab PO DAILYP PRN PRN Reason: Constipation Sodium Chloride (0.9 % Sodium Chloride 10 Ml Syringe) 10 ml IV Q8 [facility] Last Admin: 12/22/20 06:05 Dose: 10 ml Documented by: Warfarin Sodium (Warfarin Per Pharmacy) 1 order PO UD [facility] A/P Assessment and plan (1) Arterial ischemic stroke, MCA, left, acute: Status: Acute (2) Expressive aphasia: Status: Acute (3) 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 Expressive aphasia: Stays in inpatient PCU Physical therapy Occupational therapy Speech therapy--->recs. 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: Metoprolol succinate Entresto Add gentle diuretics with Aldactone #3 history of CAD status post CABG and stents: Continue metoprolol succinate Continue Entresto Continue statin therapy #4 status post aortic valve replacement with subtherapeutic INR: Goal INR between 2 and half in 3 and half currently 1.1 Continue daily INR for Coumadin dosing Coumadin with Lovenox bridging for 5 days at least #5 essential hypertension's: Continue metoprolol succinate, Entresto, and Aldactone #6 type 2 diabetes with neuropathy: Hemoglobin A A1c 6.1 Continue insulin therapy Accu-Chek before meals at bedtime Hypoglycemia protocol Diabetic diet #7 normocytic normochromic anemia: Chronic, will trend H&H and will transfuse PRBC if hemoglobin less than 7.0, active bleeding, or if the patient becomes symptomatic #8 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 Ritchie involved, continue recommendation appreciated Continue pressure dressing Okay to resume anticoagulations with Coumadin with Lovenox bridging while keeping an eye on any recurrence of bleeding or hematoma development GI prophylaxis: Protonix DVT prophylaxis: Coumadin with Lovenox bridging CODE STATUS: Full code Prognosis: Stable Dispositions: Inpatient PCU Time Spent With Patient Time: Total time spent is greater than 50% in coordination of care (as documented) at patient's floor/unit and/or counseling patient: Total time spent with greater than 50% in coordination of care (as documented) at patient's floor/unit and/or counseling patient:: Greater than 35 minutes QUALITY VTE Deep Vein Thrombosis/Pulmonary Embolism Present on Admission: No
[2020-12-22] MEDS: Sacubitril-Valsartan [Entresto] 97-103 mg tablet PO SCH ×2 (09:52→20:15)
[2020-12-22] MEDS: ENOXAPARIN 80 MG/0.8 ML SYRINGE SQ SCH ×2 (10:06→20:22)
--- NOTE | 2020-12-22 12:06 | Urology Progress Note ---
SUBJECTIVE Subjective Patient information: Note initiated : 12/22/20 at 11:57 am Service Date, if different from initiated Date: [] Patient: Tommie Gusman a 80 y/o M admitted on 12/20/20 for Expressive aphasia. Chief Complaint: [Slurred speech] Principal diagnosis: Slurred speech and possible stroke after left radical orchiectomy Interval history: Tommie is doing better today. He denied noticing improvement in his speech and his ability to communicate today is sitting up in bed alert and oriented x3. He is reading and in discussion with him reports that he has no change in his ability to really comprehend his reading. His main changes in his ability to put together words and coordinate his tongue and lips to get those words out. He reports that the symptoms are improving. He remains on bridging therapy with Lovenox and his Coumadin has been restarted. Constitutional Vitals: Vital Signs Temp Pulse Resp BP Pulse Ox 98.3 F 57 L 17 142/67 97 12/22/20 08:01 12/22/20 10:02 12/22/20 08:01 12/22/20 10:02 12/22/20 10:02 Period Temp Pulse Resp BP Sys/Herrera Pulse Ox Last 24 Hr 97.7 F-99.2 F 56-63 16-31 108-155/50-89 91-100 Intake and Output 12/21/20 12/22/20 12/22/20 21:59 05:59 13:59 Intake Total 200 0 0 Output Total 175 350 275 Balance 25 -350 -275 Weight 79.152 kg Intake & Output: Intake & Output 12/21/20 12/22/20 12/22/20 21:59 05:59 13:59 Intake Total 200 0 0 Output Total 175 350 275 Balance 25 -350 -275 Weight 79.152 kg Intake: Oral 200 0 0 Output: Void Amount 175 350 275 # of times incontinent of urine 0 Other: Urine Appearance Clear Clear Urine Color Bright Yellow Bright Yellow Urine Odor Normal Normal Stool Size Moderate Stool Color Brown Stool Consistency Soft # Voids 1 # Bowel Movements 1 General appearance: average body habitus, cooperative and no acute distress Head Head exam: Present atraumatic, normal inspection and normocephalic Neck Neck exam: Present normal inspection Respiratory Respiratory exam: Present normal respiratory exam Cardiovascular Cardiovascular exam: Present normal rate and rhythm GI/Abdominal GI/Abdominal exam: Present soft; Absent distended and tenderness Additional comments: The left groin wound is bruised and ecchymotic. There is no current active bleeding. There is a small amount of blood on his dressing. exam: Absent circumcision External exam: Present ecchymosis Additional comments: The penis and scrotum are mildly edematous and significantly ecchymotic. This is consistent with some subcutaneous bleeding. There is no significant hematoma. There is minimal tenderness to the wound on palpation. Neurological Exam Neurological exam: Present alert and oriented X3 Expanded Neurological Exam Speech: Present expressive aphasia and slurred Psychiatric Additional comments: The patient seems to be in an excellent mood, better than I would expect given the current surgery. Skin Additional comments: Please see examination of above. A/P Narrative A/P Narrative: Tommie is a 80-year-old male who is postoperative day #2 status post left radical orchiectomy. He has a history of an artificial heart valve and is chronically anticoagulated. Prior to surgery he was on bridging therapy. It appears that sometime prior to surgery he began to have some mild slurring of his speech. This became acutely worse after surgery and it is currently thought that his degree of anticoagulation prior to surgery may not have been enough to prevent a thromboembolic event. He has been evaluated by speech pathology who recommends outpatient treatment. He is currently on Lovenox and has been restarted on Coumadin. The hospital service is currently waiting for his INR to show a rise. The goal would be to have his INR between 2.5 and 3.5. As a result of the anticoagulation there is some minimal bleeding of the surgical site. There is a pressure dressing on and there is significant ecchymosis with minimal edema of the genitals. There is no hematoma. There is minimal tenderness to the wound on palpation. I do not believe there is any further intervention for this other than close observation. As long as he is anticoagulated there is a risk of some bleeding. This will generally resolve fairly quickly once things begin to heal. After speaking with the hospitalist service the earliest discharge would be tomorrow, but probably Thursday. Time Spent With Patient Time: Total time spent is greater than 50% in coordination of care (as documented) at patient's floor/unit and/or counseling patient: Total time spent with greater than 50% in coordination of care (as documented) at patient's floor/unit and/or counseling patient:: 15 - 24 minutes
--- NOTE | 2020-12-22 12:51 | Cat Scan Report ---
CLINICAL INFORMATION: expressive aphasia COMPARISON: Head CT 12/20/2020. TECHNIQUE: 2.5 mm helical slices were obtained in the skull base to vertex. Following reconstruction, axial reformatted images were reviewed at bone and parenchymal windows. The exam was performed using radiation dose optimization techniques including, but not limited to, automated exposure control, adjustment of the mA and/or kV according to patient size and use of iterative reconstruction technique. FINDINGS: The ventricles, sulci, fissures, and cisterns are symmetrically enlarged compatible with mild age-related atrophy. No extra-axial fluid collections are identified. Mild patchy chronic ischemic changes, in the deep cerebral white matter, are expected for age. There is no hemorrhage, mass effect, or edema. Bone windows show no osseous abnormality. IMPRESSION: Mild atrophy and chronic ischemic changes in the deep cerebral white matter-expected for age. No acute findings Interpreted and Authenticated by: Mauricio Pak 12/22/20
[2020-12-22] MEDS ORDERED: WARFARIN 5 MG TABLET PO ONE (14:00)
[2020-12-22] MEDS: GABAPENTIN 300 MG CAPSULE PO SCH (20:13)
[2020-12-23] MEDS: 0.9 % SODIUM CHLORIDE 10 ML SYRINGE IV SCH ×3 (05:42→21:18)
[2020-12-23 07:17] LABS: Basophils # (Auto) 0.04 K/mcL (0.00-0.30); Basophils % (Auto) 0.7 % (0.0-2.0); Eosinophils # (Auto) 0.16 K/mcL (0.00-0.70); Eosinophils % (Auto) 2.9 % (0.0-7.0); Hematocrit 30.4 % (40.1-51.0); Hemoglobin 10.4 g/dL (13.7-17.5); Mean Cell Volume 94.7 fL (80.0-100.0); Mean Corpuscular HGB Conc 34.2 g/dL (31.0-36.0); Mean Platelet Volume 13.8 fL (7.4-10.4); Monocytes # (Auto) 0.75 K/mcL (0.10-0.90); Monocytes % (Auto) 13.5 % (1.0-12.0); Neutrophils % (Auto) 73.9 % (38.0-78.0); Platelet Count 106 K/mcL (140-440); RBC 3.21 M/mcL (4.63-6.08); Red Cell Distribution Width 13.2 % (11.5-14.5); WBC 5.6 K/mcL (4.5-11.0)
[2020-12-23 07:20] LABS: INR 1.2 (0.9-1.1); Prothrombin Time 15.3 sec (11.9-14.5)
[2020-12-23] MEDS: PANTOPRAZOLE 40 MG VIAL IV SCH (08:13)
[2020-12-23] MEDS: INSULIN LISPRO 1 UNIT/0.01 ML UNIT SQ SCH ×4 (08:28→21:15)
[2020-12-23] MEDS: Sacubitril-Valsartan [Entresto] 97-103 mg tablet PO SCH (08:37)
[2020-12-23] MEDS: DOCUSATE SODIUM 100 MG CAPSULE PO SCH ×2 (08:46→21:16)
[2020-12-23] MEDS: METOPROLOL SUCCINATE 50 MG TAB.XL.24H PO SCH ×2 (08:46→21:16)
[2020-12-23] MEDS: ENOXAPARIN 80 MG/0.8 ML SYRINGE SQ SCH ×2 (08:46→21:15)
[2020-12-23] MEDS: LACTOBACILLUS 1 CAPSULE PO SCH (08:59)
[2020-12-23] MEDS: ISOSORBIDE MONONITRATE 60 MG TAB.XL.24H PO SCH (08:59)
[2020-12-23] MEDS ORDERED: SPIRONOLACTONE 25 MG TABLET PO SCH (09:00)
--- NOTE | 2020-12-23 10:11 | Urology Progress Note ---
SUBJECTIVE Subjective Patient information: Note initiated : 12/23/20 at 10:06 am Service Date, if different from initiated Date: [] Patient: Tommie Gusman 80 y/o M admitted on 12/20/20 for Expressive aphasia. Chief Complaint: [] Principal diagnosis: slurred speech and possible stroke after left radical orchiectom Interval history: Tommie is doing very well today. He is up and walking. He is alert and oriented x3. He still has some slurred speech but again this does appear to be improving. He complains of some itching and burning at his wound site Constitutional Vitals: Vital Signs Temp Pulse Resp BP Pulse Ox 97.6 F 63 20 174/91 97 12/23/20 00:01 12/23/20 08:01 12/23/20 08:01 12/23/20 08:01 12/23/20 08:01 Period Temp Pulse Resp BP Sys/Herrera Pulse Ox Last 24 Hr 97.6 F-99 F 54-63 20-20 99-174/59-91 90-99 Intake and Output 12/22/20 12/23/20 12/23/20 21:59 05:59 13:59 Intake Total 520 0 Output Total 0 700 Balance 520 -700 Weight 80.059 kg Intake & Output: Intake & Output 12/22/20 12/23/20 12/23/20 21:59 05:59 13:59 Intake Total 520 0 Output Total 0 700 Balance 520 -700 Weight 80.059 kg Intake: Oral 520 0 Output: Void Amount 700 # of times incontinent of urine 0 Other: Meal Dinner Percent of Meal Consumed 100% Feeding Ability Independent Urine Appearance Clear Clear Urine Color Bright Yellow Dark Yellow Urine Odor Normal Normal # Voids 1 # Bowel Movements 3 # of times incontinent of 0 Bowels General appearance: average body habitus, cooperative, disheveled and no acute distress Head Head exam: Present atraumatic, normal inspection and normocephalic Neck Neck exam: Present normal inspection Respiratory Respiratory exam: Present normal respiratory exam GI/Abdominal GI/Abdominal exam: Present soft; Absent distended exam: Absent circumcision External exam: Present ecchymosis Additional comments: The scrotum and penis are ecchymotic. The wound appears to be healing well without significant hematoma but there is ecchymosis. Neurological Exam Neurological exam: Present abnormal gait, alert, normal gait and oriented X3 Expanded Neurological Exam Speech: Present expressive aphasia and slurred A/P Narrative A/P Narrative: Tommie appears to be improving day by day. There is no significant bleeding from the wound this morning. His speech appears to be imp roving slightly. He is up and walking and active. His INR is still not risen quite enough. From a urologic standpoint he appears to be stable. Once he is stable per the hospitalist service he may be discharged home for outpatient urology follow-up. He will likely also need speech pathology and neurology follow-up. Time Spent With Patient Time: Total time spent is greater than 50% in coordination of care (as documented) at patient's floor/unit and/or counseling patient: Total time spent with greater than 50% in coordination of care (as documented) at patient's floor/unit and/or counseling patient:: less than 15 minutes
--- NOTE | 2020-12-23 10:38 | Internal Med Progress Note ---
SUBJECTIVE Subjective Patient information: Note initiated : 12/23/20 at 10:34 am Service Date, if different from initiated Date: [] Patient: Tommie Gusman a 80 y/o M admitted on 12/20/20 for Expressive aphasia. Chief Complaint: [expressive aphasia] Principal diagnosis: slurred speech and possible stroke after left radical orchiectom Interval history: Interval history: History of present illness: Mr. Gusman is a 80 year old M Patient has had brief intermittent episodes of the past couple days where he had difficulty finding words.. He had a left orchiectomy today and afterwards had a difficult time expressing himself. CTA head neck was done which showed 50% stenosis mid extracranial arteries no thrombosis noted. Case was discussed with [facility] neurologist who said no urgent need for any intervention but to obtain echo and MRI. Lovenox warfarin bridging. Patient on warfarin for artificial valve sounds like he may have a history of flutter and has a pacemaker and AICD. Patient symptoms slowly improving in the ED. Denies any recent illnesses. No vision changes. No extremity numbness or weakness. 12/21 Expressive aphasia present but mildly improved. No overnight event or new complaints. Unable obtain MRI given pacer. Will obtain CT brain tomorrow morning. Awaiting echo results as well. Also on Lovenox warfarin bridge awaiting INR to start elevating. 12/22: Expressive aphasia present but continue to improved. No overnight event or new complaints. No headache. INR 1.1. 12/23: repeat CT head w/o from 12/22 no signs of acute ischemia. Expressive aphasia present but continue to improved. No overnight event or new complaints. No headache. INR 1.2. Mild tingling pain of left groin. Constitutional Vitals: Vital Signs Temp Pulse Resp BP Pulse Ox 36.4 C 63 20 174/91 97 12/23/20 00:01 12/23/20 08:01 12/23/20 08:01 12/23/20 08:01 12/23/20 08:01 Period Temp Pulse Resp BP Sys/Herrera Pulse Ox Last 24 Hr 36.4 C-37.2 C 54-63 20-20 99-174/59-91 90-99 Intake and Output 12/22/20 12/23/20 12/23/20 21:59 05:59 13:59 Intake Total 520 0 Output Total 0 700 Balance 520 -700 Weight 80.059 kg Intake & Output: Intake & Output 12/22/20 12/23/20 12/23/20 21:59 05:59 13:59 Intake Total 520 0 Output Total 0 700 Balance 520 -700 Weight 80.059 kg Intake: Oral 520 0 Output: Void Amount 700 # of times incontinent of urine 0 Other: Meal Dinner Percent of Meal Consumed 100% Feeding Ability Independent Urine Appearance Clear Clear Urine Color Bright Yellow Dark Yellow Urine Odor Normal Normal # Voids 1 # Bowel Movements 3 # of times incontinent of 0 Bowels General appearance: cooperative and no acute distress Head Head exam: Present atraumatic and normocephalic Eye Eye exam: Present EOMI and PERRL ENT ENT exam: Present mucous membranes moist, normal exam and normal external ear exam Neck Neck exam: Present normal inspection; Absent lymphadenopathy, tenderness and thyromegaly Respiratory Respiratory exam: Absent accessory muscle use, respiratory distress and wheezes Cardiovascular Cardiovascular exam: Present normal rate and rhythm and clicks; Absent JVD GI/Abdominal GI/Abdominal exam: Present normal bowel sounds and soft; Absent organomegaly and tenderness Rectal Rectal exam: Present deferred External exam: Present ecchymosis and lesions Additional comments: left testicle surgically removed. Extremities Exam Extremities exam: Present full ROM, normal capillary refill and normal inspection; Absent tenderness Neurological Exam Neurological exam: Present alert, CN II-XII intact and oriented X3; Absent motor sensory deficit Additional comments: shuttering with mild words finding difficulty Psychiatric Psychiatric exam: Present normal affect and normal mood; Absent anxious and depressed Skin Skin exam: Present dry and intact OBJ DATA Labs CBC & Chem 7: 12/23/20 05:46 12/21/20 06:12 Labs: Abnormal Lab Results 12/23/20 12/23/20 12/22/20 05:46 05:46 05:25 RBC 3.21 L Hgb 10.4 L Hct 30.4 L Plt Count 106 L MPV 13.8 H Neut % (Auto) Lymph % (Auto) 9.0 L Baker % (Auto) 13.5 H Lymph # (Auto) 0.50 L Absolute Neutrophils PT 15.3 H 15.1 H INR 1.2 H Carbon Dioxide Glucose Hemoglobin A1c Calcium Lactate Dehydrogenase Total Protein Globulin Albumin/Globulin Ratio 12/22/20 12/21/20 12/21/20 05:24 06:12 06:12 RBC 3.15 L Hgb 10.0 L Hct 30.5 L Plt Count 107 L MPV 13.6 H Neut % (Auto) 79.9 H Lymph % (Auto) 7.4 L Baker % (Auto) Lymph # (Auto) 0.50 L Absolute Neutrophils PT 16.2 H INR 1.2 H Carbon Dioxide Glucose 171 H Hemoglobin A1c Calcium 8.5 L Lactate Dehydrogenase 310 H Total Protein 5.3 L Globulin 1.5 L Albumin/Globulin Ratio 2.5 H 12/20/20 12/20/20 12/20/20 22:03 17:00 17:00 RBC Hgb Hct Plt Count MPV Neut % (Auto) Lymph % (Auto) Baker % (Auto) Lymph # (Auto) Absolute Neutrophils PT 14.8 H INR Carbon Dioxide 21 L Glucose 249 H Hemoglobin A1c 6.1 H Calcium Lactate Dehydrogenase Total Protein Globulin 2.0 L Albumin/Globulin Ratio 12/20/20 17:00 RBC 3.56 L Hgb 11.3 L Hct 35.1 L Plt Count 121 L MPV 13.4 H Neut % (Auto) 94.9 H Lymph % (Auto) 2.2 L Baker % (Auto) Lymph # (Auto) 0.21 L Absolute Neutrophils 9.20 H PT INR Carbon Dioxide Glucose Hemoglobin A1c Calcium Lactate Dehydrogenase Total Protein Globulin Albumin/Globulin Ratio Meds: Medications Acetaminophen (Acetaminophen 325 Mg Tablet) 650 mg PO Q6HP PRN PRN Reason: PAIN/FEVER > 101 Hydrocodone Bitart/Acetaminophen (Hydrocodone/Apap 5/325mg Tablet) 1 tab PO Q6HP PRN PRN Reason: Pain Albuterol/Ipratropium (Ipratropium/Albuterol 3 Ml Ampul.Neb) 3 ml NEB Q4HP PRN PRN Reason: Shortness Of Breath Dextrose (Dextrose 50% 50 Ml Vial) 0 ml IV UD PRN PRN Reason: Hypoglycemia Diagnostic Test (Pha) (Accu-Chek 1 Each Strip) 1 each FS ACHS [facility] Last Admin: 12/23/20 08:28 Dose: 1 each Documented by: Docusate Sodium (Docusate Sodium 100 Mg Capsule) 100 mg PO BID [facility] Last Admin: 12/23/20 08:46 Dose: 100 mg Documented by: Enoxaparin Sodium (Enoxaparin 80 Mg/0.8 Ml Syringe) 80 mg SQ BID [facility] Last Admin: 12/23/20 08:46 Dose: 80 mg Documented by: Gabapentin (Gabapentin 300 Mg Capsule) 300 mg PO QHS [facility] Last Admin: 12/22/20 20:13 Dose: 300 mg Documented by: Glucose (Dextrose 31 Gm Oral.Susp) 15 gm PO PRN PRN PRN Reason: Hypoglycemia Potassium Chloride 40 meq/ (Dextrose) 520 mls @ 130 mls/hr IV UD PRN PRN Reason: Potassium < 3 Magnesium Sulfate (Magnesium Sulfate) 2 gm in 50 mls @ 50 mls/hr IV UD PRN PRN Reason: Magnesium </= 1.6 Insulin Human Lispro (Insulin Lispro 1 Unit/0.01 Ml Unit) 0 unit SQ ACHS [facility]; Protocol Last Admin: 12/23/20 08:28 Dose: Not Given Documented by: Isosorbide Mononitrate (Isosorbide Mononitrate 60 Mg Tab.Xl.24h) 60 mg PO QDAY [facility] Last Admin: 12/23/20 08:59 Dose: 60 mg Documented by: Labetalol HCl (Labetalol 5 Mg/Ml Ml) 0 mg IV Q2HP PRN PRN Reason: Hypertension Lactobacillus Rhamnosus (Lactobacillus 1 Capsule) 1 cap PO DAILY [facility] Last Admin: 12/23/20 08:59 Dose: 1 cap Documented by: Metoclopramide HCl (Metoclopramide 10 Mg/2 Ml Vial) 10 mg IV Q6HP PRN PRN Reason: Nausea And Vomiting Metoprolol Succinate (Metoprolol Succinate 50 Mg Tab.Xl.24h) 50 mg PO BID [facility] Last Admin: 12/23/20 08:46 Dose: 50 mg Documented by: Metoprolol Tartrate (Metoprolol Tartrate 5 Mg/5 Ml Vial) 5 mg IV Q2HP PRN PRN Reason: Tachyarrhythmias HR>110 Nitroglycerin (Nitroglycerin 0.4 Mg Tab.Subl) 0.4 mg SL Q5M PRN PRN Reason: Chest Pain Ondansetron HCl (Ondansetron 4 Mg/2 Ml Vial) 4 mg IV Q4HP PRN PRN Reason: Nausea And Vomiting Pantoprazole Sodium (Pantoprazole 40 Mg Vial) 40 mg IV QAMAC [facility] Last Admin: 12/23/20 08:13 Dose: 40 mg Documented by: Rosuvastatin 20 Mg (Tablet) 1 dose PO QPM [facility] Last Admin: 12/22/20 20:14 Dose: Not Given Documented by: Sacubitril-Valsartan [Entresto] 97-103 Mg Tablet 1 dose PO BID [facility] Last Admin: 12/23/20 08:37 Dose: Not Given Documented by: Polyethylene Glycol (Polyethylene Glycol 3350 17 Gm Packet) 17 gm PO DAILYP PRN PRN Reason: Constipation Potassium Chloride (Potassium Chloride 20 Meq Tablet) 40 meq PO UD PRN PRN Reason: Potssium is 3-3.5 Potassium Chloride (Potassium Chloride 20 Meq Tablet) 40 meq PO UD PRN PRN Reason: Potassium < 3 Senna (Sennosides 1 Tablet) 2 tab PO DAILYP PRN PRN Reason: Constipation Sodium Chloride (0.9 % Sodium Chloride 10 Ml Syringe) 10 ml IV Q8 [facility] Last Admin: 12/23/20 05:42 Dose: 10 ml Documented by: Spironolactone (Spironolactone 25 Mg Tablet) 50 mg PO DAILY [facility] Last Admin: 12/23/20 08:46 Dose: 50 mg Documented by: Warfarin Sodium (Warfarin Per Pharmacy) 1 order PO UD [facility] Warfarin Sodium (Warfarin 7.5 Mg Tablet) 7.5 mg PO ONCE@1400 ONE Stop: 12/23/20 14:01 A/P Assessment and plan (1) Arterial ischemic stroke, MCA, left, acute: Status: Acute (2) Expressive aphasia: Status: Acute (3) 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 Expressive aphasia: Transfer to inpatient med surg telemetry Physical therapy Occupational therapy Speech therapy--->recs. 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: Metoprolol succinate Entresto Gentle diuretics with Aldactone #3 history of CAD status post CABG and stents: Continue metoprolol succinate Continue Entresto Continue statin therapy #4 status post aortic valve replacement with subtherapeutic INR: Goal INR between 2 and half in 3 and half currently 1.2 Continue daily INR for Coumadin dosing Coumadin with Lovenox bridging for 5 days at least #5 essential hypertension's: Continue metoprolol succinate, Entresto, and Aldactone #6 type 2 diabetes with neuropathy: Hemoglobin A A1c 6.1 Continue insulin therapy Accu-Chek before meals at bedtime Hypoglycemia protocol Diabetic diet #7 normocytic normochromic anemia: Chronic, will trend H&H and will transfuse PRBC if hemoglobin less than 7.0, active bleeding, or if the patient becomes symptomatic #8 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 Ritchie involved, continue recommendation appreciated Continue pressure dressing Okay to resume anticoagulations with Coumadin with Lovenox bridging while keeping an eye on any recurrence of bleeding or hematoma development GI prophylaxis: Protonix DVT prophylaxis: Coumadin with Lovenox bridging CODE STATUS: Full code Prognosis: Stable Dispositions: Transfer to inpatient med surg telemetry Time Spent With Patient Time: Total time spent is greater than 50% in coordination of care (as documented) at patient's floor/unit and/or counseling patient: QUALITY VTE Deep Vein Thrombosis/Pulmonary Embolism Present on Admission: No
[2020-12-23] MEDS ORDERED: WARFARIN 7.5 MG TABLET PO ONE (14:00)
--- NOTE | 2020-12-23 16:20 | Urology Progress Note ---
SUBJECTIVE Subjective Patient information: Note initiated : 12/23/20 at 4:13 pm Service Date, if different from initiated Date: [] Patient: Tommie Gusman 80 y/o M admitted on 12/20/20 for Expressive aphasia. Chief Complaint: [] Principal diagnosis: slurred speech and possible stroke after left radical orchiectom Interval history: I was called as Tommie thought he had more swelling of his scrotum than he had earlier today. He reports that it is more difficult to retract the foreskin and it is therefore more difficult to urinate. He has been quite active today. Constitutional Vitals: Vital Signs Temp Pulse Resp BP Pulse Ox 98.3 F 62 20 116/61 100 12/23/20 12:03 12/23/20 14:32 12/23/20 12:03 12/23/20 12:03 12/23/20 14:32 Period Temp Pulse Resp BP Sys/Herrera Pulse Ox Last 24 Hr 97.6 F-98.7 F 54-63 19-20 116-174/59-91 90-100 Intake and Output 12/23/20 12/23/20 12/23/20 05:59 13:59 21:59 Intake Total 0 240 Output Total 700 0 Balance -700 0 240 Intake & Output: Intake & Output 12/23/20 12/23/20 12/23/20 05:59 13:59 21:59 Intake Total 0 240 Output Total 700 0 Balance -700 0 240 Intake: Oral 0 240 Output: Void Amount 700 # of times incontinent of urine 0 Other: Meal Lunch Percent of Meal Consumed 100% Feeding Ability Independent Urine Appearance Clear Clear Urine Color Dark Yellow Bright Yellow Urine Odor Normal Normal # Voids 1 exam: Absent circumcision External exam: Present ecchymosis and swelling Additional comments: There is increased subcutaneous swelling in the groin consistent with a hematoma. This has developed since this morning. There is some increased edema of the penis and the scrotum. There is a small hematoma in the left hemiscrotum new since this morning. A/P Narrative A/P Narrative: New swelling in the left groin, penis and scrotum that is likely secondary to development of a small hematoma. This is likely due to the patient's increased activity and anticoagulation. I have advised to keep an eye on things and bedrest as much as possible. When in bed the scrotum should be elevated with a washcloth underneath it. If he finds it difficult to urinate, then a Hutchinson catheter may be placed. No surgical intervention is necessary at this time. Bedrest and no lifting advised. Time Spent With Patient Time: Total time spent is greater than 50% in coordination of care (as documented) at patient's floor/unit and/or counseling patient: Total time spent with greater than 50% in coordination of care (as documented) at patient's floor/unit and/or counseling patient:: less than 15 minutes
[2020-12-23] MEDS ORDERED: ACETAMINOPHEN 325 MG TABLET PO PRN (18:27)
[2020-12-23] MEDS ORDERED: POTASSIUM CHLORIDE 40 MEQ in DEXTROSE 5% IN WATER 500 ML IV PRN (18:27)
[2020-12-23] MEDS ORDERED: DEXTROSE 50% 50 ML VIAL IV PRN (18:27)
[2020-12-23] MEDS ORDERED: POTASSIUM CHLORIDE 20 MEQ TABLET PO PRN ×2 (18:27)
[2020-12-23] MEDS ORDERED: SENNOSIDES 1 TABLET PO PRN (18:27)
[2020-12-23] MEDS ORDERED: NITROGLYCERIN 0.4 MG TAB.SUBL SL PRN (18:27)
[2020-12-23] MEDS ORDERED: LABETALOL 5 MG/ML ML IV PRN (18:27)
[2020-12-23] MEDS ORDERED: METOPROLOL TARTRATE 5 MG/5 ML VIAL IV PRN (18:27)
[2020-12-23] MEDS ORDERED: IPRATROPIUM/ALBUTEROL 3 ML AMPUL.NEB NEB PRN (18:27)
[2020-12-23] MEDS ORDERED: HYDROcodone/APAP 5/325MG TABLET PO PRN (18:27)
[2020-12-23] MEDS ORDERED: DEXTROSE 31 GM ORAL.SUSP PO PRN (18:27)
[2020-12-23] MEDS ORDERED: ONDANSETRON 4 MG/2 ML VIAL IV PRN (18:27)
[2020-12-23] MEDS ORDERED: METOCLOPRAMIDE 10 MG/2 ML VIAL IV PRN (18:27)
[2020-12-23] MEDS ORDERED: POLYETHYLENE GLYCOL 3350 17 GM PACKET PO PRN (18:27)
[2020-12-23] MEDS ORDERED: MAGNESIUM SULFATE 2 GM/50 ML BAG IV PRN (18:27)
[2020-12-23] MEDS ORDERED: ROSUVASTATIN 20 MG TABLET PO SCH (21:00)
[2020-12-23] MEDS ORDERED: GABAPENTIN 300 MG CAPSULE PO SCH (21:00)
[2020-12-23] MEDS: SACUBITRIL VALSARTAN PO SCH (21:18)
[2020-12-24] MEDS: 0.9 % SODIUM CHLORIDE 10 ML SYRINGE IV SCH ×2 (05:27→13:18)
[2020-12-24] MEDS ORDERED: PANTOPRAZOLE 40 MG VIAL IV SCH (07:30)
[2020-12-24] MEDS: INSULIN LISPRO 1 UNIT/0.01 ML UNIT SQ SCH ×2 (07:33→11:43)
--- NOTE | 2020-12-24 07:37 | Urology Progress Note ---
SUBJECTIVE Subjective Patient information: Note initiated : 12/24/20 at 7:32 am Service Date, if different from initiated Date: [] Patient: Tommie Gusman 80 y/o M admitted on 12/20/20 for Expressive aphasia. Chief Complaint: [] Principal diagnosis: slurred speech and possible stroke after left radical orchiectom Interval history: Tommie appears to be well this morning. He is alert and up in bed. He is cheerful. He reports that he feels things are improving including the swelling in the scrotum. He finds it more easy to urinate. Constitutional Vitals: Vital Signs Temp Pulse Resp BP Pulse Ox 97.8 F 63 18 141/58 91 12/24/20 04:01 12/24/20 04:00 12/24/20 04:01 12/24/20 04:01 12/24/20 04:27 Period Temp Pulse Resp BP Sys/Herrera Pulse Ox Last 24 Hr 97.7 F-98.3 F 61-68 16-20 116-174/58-91 91-100 Intake and Output 12/23/20 12/24/20 12/24/20 21:59 05:59 13:59 Intake Total 240 Output Total 900 Balance 240 -900 Weight 79.634 kg Intake & Output: Intake & Output 12/23/20 12/24/20 12/24/20 21:59 05:59 13:59 Intake Total 240 Output Total 900 Balance 240 -900 Weight 79.634 kg Intake: Oral 240 Output: Void Amount 900 Other: Meal Lunch Percent of Meal Consumed 100% Feeding Ability Independent Urine Color Bright Yellow Urine Odor Normal # Voids 1 General appearance: average body habitus, cooperative and no acute distress Head Head exam: Present atraumatic, normal inspection and normocephalic Neck Neck exam: Present normal inspection Respiratory Respiratory exam: Present normal respiratory exam GI/Abdominal GI/Abdominal exam: Present soft; Absent tenderness exam: Present scrotal swelling; Absent circumcision Additional comments: The scrotum remains ecchymotic but has decreased swelling compared to yesterday. The hematoma in the left groin has not enlarged overnig ht. It appears to be stable. There is decreased ecchymosis at the surgical site Expanded Exam Male exam: Present penile swelling Neurological Exam Neurological exam: Present alert and normal gait Additional comments: The expressive aphasia remains present. Expanded Neurological Exam Speech: Present expressive aphasia A/P Narrative A/P Narrative: Tommie appears to be showing signs of improvement. His expresses aphasia remains in place and may be slowly improving. He is able to communicate and get his point across although he does sometimes fumble for words. He is finding it easier to urinate and on inspection there is decreased swelling of the scrotum and the penis. The left groin hematoma does not appear to be worsening. I feel that he can resume light activity as long as the hematoma and scrotal swelling do not worsen. If they do he should then resume bedrest. Once he is stable for discharge per the hospitalist service he may go home with outpatient follow-up. I will continue to follow him while in [facility] Time Spent With Patient Time: Total time spent is greater than 50% in coordination of care (as documented) at patient's floor/unit and/or counseling patient: Total time spent with greater than 50% in coordination of care (as documented) at patient's floor/unit and/or counseling patient:: less than 15 minutes
[2020-12-24 08:37] LABS: INR 1.2 (0.9-1.1); Prothrombin Time 16.2 sec (11.9-14.5)
[2020-12-24] MEDS ORDERED: SPIRONOLACTONE 25 MG TABLET PO SCH (09:00)
[2020-12-24] MEDS ORDERED: LACTOBACILLUS 1 CAPSULE PO SCH (09:00)
[2020-12-24] MEDS ORDERED: ISOSORBIDE MONONITRATE 60 MG TAB.XL.24H PO SCH (09:00)
[2020-12-24 09:28] LABS: Basophils # (Auto) 0.04 K/mcL (0.00-0.30); Basophils % (Auto) 0.8 % (0.0-2.0); Eosinophils % (Auto) 3.8 % (0.0-7.0); Hematocrit 31.2 % (40.1-51.0); Hemoglobin 10.3 g/dL (13.7-17.5); Lymphocytes % (Auto) 9.5 % (15.5-49.0); Monocytes # (Auto) 0.74 K/mcL (0.10-0.90); Monocytes % (Auto) 14.1 % (1.0-12.0); Neutrophils % (Auto) 71.8 % (38.0-78.0); Platelet Count 95 K/mcL (140-440); RBC 3.25 M/mcL (4.63-6.08); Red Cell Distribution Width 13.4 % (11.5-14.5); WBC 5.3 K/mcL (4.5-11.0)
[2020-12-24] MEDS: DOCUSATE SODIUM 100 MG CAPSULE PO SCH (10:11)
[2020-12-24] MEDS: METOPROLOL SUCCINATE 50 MG TAB.XL.24H PO SCH (10:11)
[2020-12-24] MEDS: ENOXAPARIN 80 MG/0.8 ML SYRINGE SQ SCH (10:11)
[2020-12-24] MEDS: SACUBITRIL VALSARTAN PO SCH (10:12)
--- NOTE | 2020-12-24 11:17 | Discharge Summary ---
Discharge Provider Provider Patient information: Note initiated : 12/24/20 at 11:12 am Service Date, if different from initiated Date: [] Patient: Tommie Gumsan 80 y/o M admitted on 12/20/20 for Expressive aphasia. Chief Complaint: [expressive aphasia secondary to ischemic stroke] Date of admission: 12/20/20 21:12 Discharge date: 12/24/20 Primary care physician: Janes Elias DO Consults: 12/20/20 Consult to Physician [CONS] Stat Comment: Consulting Provider: Jose Alberto Connor Reason For Exam: Physician to Consult Consult to Physician [CONS] Stat Comment: NOT ASHA - neuro at [place] Dr. Milian Consulting Provider: Bruce Hernandez Reason For Exam: Physician to Consult 12/21/20 12:43 Consult to Physician [CONS] Routine Comment: Consulting Provider: Jermain Ritchie Reason For Exam: Physician to Consult Discharge Meds Discharge Medications Home Medications isosorbide mononitrate 60 mg tablet,extended release 24 hr 60 mg PO QDAY 11/21/20 [History Confirmed 12/20/20 Last Taken 12/20/20 05:30] metformin 500 mg tablet See Rx Instructions PO .COMPLEX 11/21/20 [History Confirmed 12/20/20 Last Taken Unknown] nitroglycerin 0.4 mg sublingual tablet 0.4 mg SUBLINGUAL Q5-15M PRN 11/21/20 [History Confirmed 12/20/20 Last Taken Unknown] omega-3 fatty acids-fish oil 340 mg-1,000 mg capsule 1 cap PO BID 11/21/20 [History Confirmed 12/20/20 Last Taken Unknown] rosuvastatin 20 mg tablet 20 mg PO QPM tab 11/21/20 [History Confirmed 12/20/20 Last Taken Unknown] sacubitril 97 mg-valsartan 103 mg tablet 1 tab PO BID 11/21/20 [History Confirmed 12/20/20 Last Taken 12/20/20 05:30] Lactobacillus acidophilus 1,000 mmu cells PO QDAY 12/17/20 [History Confirmed 12/20/20 Last Taken Unknown] gabapentin 300 mg PO QHS 12/17/20 [History Confirmed 12/20/20 Last Taken Unknown] lysine 1,000 mg PO BID 12/17/20 [History Confirmed 12/20/20 Last Taken Unknown] metoprolol succinate 50 mg PO BID 12/17/20 [History Confirmed 12/20/20 Last Taken 12/20/20 05:30] multivitamin 1 tab PO QDAY 12/17/20 [History Confirmed 12/20/20 Last Taken Unknown] hydrocodone-acetaminophen 1 tab PO Q6H PRN #8 tab 12/20/20 [Rx Confirmed 12/20/20 Last Taken Unknown] enoxaparin [Lovenox] 80 mg SQ BID #400 ml 12/24/20 [Rx Last Taken Unknown] rosuvastatin [Crestor] 40 mg PO QDAY #30 tab 12/24/20 [Rx Last Taken Unknown] spironolactone 50 mg PO DAILY #30 tab 12/24/20 [Rx Last Taken Unknown] warfarin 7.5 mg PO QDAY #30 tab 12/24/20 [Rx Last Taken Unknown] COURSE Hospital Course Hospital course: Patient was admitted on December 20 for expressive aphasia secondary to presumed left MCA ischemic stroke. Serial head CT without contrast were performed and no signs of acute ischemia were identified. MRI of the brain was not performed due to the presence of pacemaker. Physical, occupational, and speech therapist evaluation and treatment were all implemented. Patient also had a history of mechanical aortic valve replacement with goal INR between 2 and half in but his INR was subtherapeutic anywhere between 1.1 and 1.2. Coumadin and Lovenox bridging were instituted and daily INR will check for Coumadin dosing. 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 Dr. Ritchie was consulted for post surgical management and the patient did not develop any postsurgical complications whatsoever. Patient's remained clinically stable and the decision was made to discharge patient home with outpatient speech therapy on December 24, 2020. Follow-up appointment with PCP as well as with Dr. Ritchie were made. Prescription sent to pharmacy. In particular, patient should continue 2 more days of Lovenox after today as part of the 5-day total course of Coumadin/Lo venox bridging. All questions were answered prior to patient being physically discharged. Discharge diagnosis: ischemic stroke with expressive aphasia Time Spent with Patient Time attestation: Total time spent providing and/or coordinating discharge services: Patient was admitted on December 20 for expressive aphasia secondary to presumed left MCA ischemic stroke. Serial head CT without contrast were performed and no signs of acute ischemia were identified. MRI of the brain was not performed due to the presence of pacemaker. Physical, occupational, and speech therapist evaluation and treatment were all implemented. Patient also had a history of mechanical aortic valve replacement with goal INR between 2 and half in 3-03/31 but his INR was subtherapeutic anywhere between 1.1 and 1.2. Coumadin and Lovenox bridging were instituted and daily INR will check for Coumadin dosing. 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 Dr. Ritchie was consulted for post surgical management and the patient did not develop any postsurgical complications whatsoever. Patient's remained clinically stable and the decision was made to discharge patient home with outpatient speech therapy on December 24, 2020. Follow-up appointment with PCP as well as with Dr. Rithcie were made. Prescription sent to pharmacy. In particular, patient should continue 2 more days of Lovenox after today as part of the 5-day total course of Coumadin/Love nox bridging. All questions were answered prior to patient being physically discharged. EXAM Constitutional Vitals: Temp Pulse Resp BP Pulse Ox 36.8 C 63 16 166/78 96 12/24/20 06:01 12/24/20 04:00 12/24/20 06:01 12/24/20 08:02 12/24/20 08:02 General appearance: cooperative and no acute distress Head Head exam: Present atraumatic and normocephalic Eye Eye exam: Present EOMI and PERRL ENT ENT exam: Present mucous membranes moist, normal exam and normal external ear exam Neck Neck exam: Present normal inspection; Absent lymphadenopathy, tenderness and thyromegaly Respiratory Respiratory exam: Absent accessory muscle use, respiratory distress and wheezes Cardiovascular Cardiovascular exam: Present normal rate and rhythm and clicks; Absent JVD GI/Abdominal GI/Abdominal exam: Present normal bowel sounds and soft; Absent organomegaly and tenderness Rectal Rectal exam: Present deferred Additional comments: Left testicle surgically removed Extremities Exam Extremities exam: Present full ROM, normal capillary refill and normal inspection; Absent tenderness Neurological Exam Neurological exam: Present alert, CN II-XII intact and oriented X3; Absent motor sensory deficit Additional comments: Stuttering with speech and with mild word finding difficulty Psychiatric Psychiatric exam: Present normal affect and normal mood; Absent anxious and depressed Skin Skin exam: Present dry and intact Discharge Data Data Completed and Pending Labs on day of discharge: Labs from last 24 hours 12/24/20 12/24/20 05:55 05:54 WBC 5.3 RBC 3.25 L Hgb 10.3 L Hct 31.2 L MCV 96.0 MCH 31.7 MCHC 33.0 RDW 13.4 Plt Count 95 L MPV Neut % (Auto) 71.8 Lymph % (Auto) 9.5 L Cooke % (Auto) 14.1 H Eos % (Auto) 3.8 Baso % (Auto) 0.8 Lymph # (Auto) 0.50 L Cooke # (Auto) 0.74 Eos # (Auto) 0.20 Baso # (Auto) 0.04 Absolute Neutrophils 3.78 PT 16.2 H INR 1.2 H Discharge Plan Patient/Caregiver Discharge Instructions Activity: increase activity as tolerated Diet: Consistent Carbohydrate Instructions: Enoxaparin (By injection), Expressive Aphasia Exercises (GEN), Ischemic Stroke (GEN) Stand Alone Forms: Left Against Medical Advice Prescriptions: New spironolactone 25 mg Tablet 50 mg PO DAILY Qty: 30 RF: 0 enoxaparin [Lovenox] 80 mg/0.8 mL Syringe 80 mg SQ BID Qty: 400 RF: 0 warfarin 7.5 mg tablet 7.5 mg PO QDAY Qty: 30 RF: 0 rosuvastatin [Crestor] 40 mg tablet 40 mg PO QDAY Qty: 30 RF: 0 Continued metformin 500 mg tablet See Rx Instructions PO .COMPLEX RF: 0 rosuvastatin 20 mg tablet 20 mg PO QPM RF: 0 isosorbide mononitrate 60 mg tablet extended release 24 hr 60 mg PO QDAY RF: 0 Entresto 97-103 mg tablet 1 tab PO BID RF: 0 Fish Oil 340-1,000 mg capsule 1 cap PO BID RF: 0 nitroglycerin 0.4 mg tablet, sublingual 0.4 mg sublingual Q5-15M PRN (Reason: Angina) RF: 0 multivitamin Tablet 1 tab PO QDAY RF: 0 Lactobacillus acidophilus Tablet 1,000 mmu cells PO QDAY RF: 0 gabapentin 300 mg Capsule 300 mg PO QHS RF: 0 metoprolol succinate 50 mg Capsule,Sprinkle,Er 24hr 50 mg PO BID RF: 0 lysine 1,000 mg Tablet 1,000 mg PO BID RF: 0 hydrocodone-acetaminophen 5-325 mg tablet 1 tab PO Q6H PRN (Reason: pain) Qty: 8 RF: 0 Other Ambulatory Orders: ST Discharge Order (Routine) Location: [facility] Ordered By: Kartik Todd Follow Up Plan Follow up with: Janes Elias DO [Primary Care Provider] - Jermain Ritchie MD [Physician] - (Continue with your current appointment) Patient Disposition: Home, Self-Care Rehab Potential: Good I certify that the patient requires SNF services: No Overall status at discharge: patient is progressing back to baseline Discharge Orders: Discharge Order (Routine); Ordered 12/24/20 Ordered By: Kartik Todd QUALITY VTE Deep Vein Thrombosis/Pulmonary Embolism Present on Admission: No
[2020-12-24] MEDS ORDERED: WARFARIN 7.5 MG TABLET PO ONE (14:00)
== END 2020-12-24 14:22 | disposition home or self-care (01) | DRG 65 ==
LOC: ED 15:51 → ICU 21:12
PROVIDERS: ADMIT Internal Medicine; ATTEND Internal Medicine